=== PATIENT | female | born 1995 | race Caucasian/White ===

== ENCOUNTER 2020-11-06 11:24 | Outpatient (REF) | payer OTHER, SELFPAY | END 2020-11-06 11:25 | disposition home or self-care (01) | LOC: HO.LNP 11:24 | PROVIDERS: Visit Provider Internal Medicine | DX: Z20.822 Contact with and (suspected) exposure to COVID-19 (principal); J06.9 Acute upper respiratory infection, unspecified | CPT/HCPCS: U0003; U0005 ==

== ENCOUNTER 2020-11-21 16:12 | Outpatient (REF) | payer OTHER, SELFPAY ==
--- NOTE | ~2020-11-21 | XR_ITS ---
EXAMINATION: XR CERVICAL SPINE CLINICAL INFORMATION: Cervicalgia. COMPARISON: None TECHNIQUE: Cervical spine is imaged in 4 views. FINDINGS: There is mild rightward tilting on frontal view with borderline straightening cervical lordosis. This may be related to muscle spasm. The vertebral bodies are normal in height, and there is no vertebral compression, spondylolisthesis, disc narrowing, or erosive change. No prevertebral soft tissue swelling. The odontoid appears intact. XR/XR cervical spine 2V IMPRESSION: 1. Mild rightward tilting cervical spine with straightening cervical lordosis, possibly related to muscle spasm. 2. No vertebral compression, spondylolisthesis, or disc narrowing.
== END 2020-11-21 16:13 | disposition home or self-care (01) ==
LOC: HO.XRAY 16:12
PROVIDERS: PCP Internal Medicine; Visit Provider Internal Medicine
DX: M54.2 Cervicalgia (principal)
CPT/HCPCS: 72040

== ENCOUNTER 2021-01-30 11:23 | Outpatient (REF) | payer OTHER, SELFPAY ==
[2021-01-30 12:06] LABS: Influenza A PCR NEGATIVE (Negative); Influenza B PCR NEGATIVE (Negative); Resp Syncy Virus RNA Qual PCR POSITIVE (Negative); SARS COV2 PCR INHOUSE NEGATIVE (Negative)
== END 2021-01-30 11:24 | disposition home or self-care (01) ==
LOC: HO.LNP 11:23
PROVIDERS: Visit Provider Nurse Practitioner Family
DX: Z20.822 Contact with and (suspected) exposure to COVID-19 (principal); R09.81 Nasal congestion; H66.91 Otitis media, unspecified, right ear
CPT/HCPCS: 0241U

== ENCOUNTER 2021-03-15 06:24 | Outpatient (REF) | payer OTHER, SELFPAY ==
[2021-03-15 06:35] LABS: MANUAL DIFF FLAG NO
[2021-03-15 07:51] LABS: Basophils Percent Auto 0.4 % (0-2); Eosinophils Absolute Auto 0.2 X10*3/uL (0.0-0.4); Eosinophils Percent Auto 2.9 % (0-4); Hematocrit 45.4 % (37.0-47.0); Hemoglobin 14.8 g/dl (12.0-16.0); Imm Gran Abs Auto 0.02 X10*3/uL (0.00-0.03); Imm Gran Pct Auto 0.3 % (0.0-0.4); Lymphocytes Percent Auto 44.6 % (20-40); Mean Corpuscular HGB Conc 32.6 g/dl (31.0-35.0); Mean Corpuscular Hemoglobin 27.8 pg (27.0-33.0); Mean Corpuscular Volume 85.2 fL (80.0-98.0); Mean Platelet Volume 10.6 fL (9.4-12.3); Monocytes Absolute Auto 0.7 X10*3/uL (0.1-1.2); Neutrophils Absolute Auto 2.8 x10*3/uL (2.0-8.3); Neutrophils Percent Auto 41.8 % (45-73); Platelet Count 316 X10*3/uL (160-400); Red Blood Count 5.33 X10*6/uL (4.20-5.50); White Blood Count 6.8 X10*3/uL (4.8-10.8)
[2021-03-15 08:08] LABS: Alanine Aminotransferase 25 U/L (0-31); Albumin Level 4.5 g/dL (3.5-5.0); Alkaline Phosphatase 66 U/L (39-117); Anion Gap 13 (12-20); Aspartate Amino Transferase 20 U/L (5-31); Bilirubin Total 0.9 mg/dL (0.0-1.0); Blood Urea Nitrogen 10 mg/dL (9-16); Carbon Dioxide 28 mmol/L (22-29); Chloride 106 mmol/L (96-108); Cholesterol 181 mg/dL; Estimated Glomerular Filt Rate > 60; Glucose Fasting 97 mg/dL (60-99); HDL Cholesterol 32 mg/dL; LDL Cholesterol Calculated 133 mg/dl; Potassium 4.5 mmol/L (3.3-5.1); Sodium 142 mmol/L (135-145); Total Protein 7.9 g/dL (6.5-8.0); Triglycerides 81 mg/dL
[2021-03-20 17:27] LABS: Vitamin D 25-OH, D2 <4 ng/mL; Vitamin D 25-OH, D3 31 ng/mL; Vitamin D 25-OH, Total 31 ng/mL (30-100)
== END 2021-03-15 06:25 | disposition home or self-care (01) ==
LOC: HO.LAB 06:24
PROVIDERS: PCP Internal Medicine; Visit Provider Internal Medicine
DX: E66.3 Overweight (principal); E55.9 Vitamin D deficiency, unspecified; E78.5 Hyperlipidemia, unspecified; D64.9 Anemia, unspecified
CPT/HCPCS: 36415; 80053; 80061; 82306; 85025

== ENCOUNTER → 2021-06-27 09:02 | Outpatient (REF) | payer OTHER, SELFPAY ==
--- NOTE | 2021-06-27 09:12 | ECG_ITS ---
Test Reason : chest pain Blood Pressure : / mmHG Vent. Rate : 067 BPM Atrial Rate : 067 BPM P-R Int : 116 ms QRS Dur : 088 ms QT Int : 368 ms P-R-T Axes : 030 036 035 degrees QTc Int : 388 ms Normal sinus rhythm with sinus arrhythmia Normal ECG No previous ECGs available Referred By: Marya Whitley Electronically Signed By:SANDRA REYES MD
== END ==
LOC: HO.CARD 09:02
PROVIDERS: PCP Internal Medicine; Visit Provider Nurse Practitioner Family
DX: R07.9 Chest pain, unspecified (principal)
CPT/HCPCS: 93005

== ENCOUNTER 2021-07-04 17:31 | Outpatient (REF) | payer OTHER, SELFPAY | END 2021-07-04 17:32 | disposition home or self-care (01) | LOC: HO.LNP 17:31 | PROVIDERS: Visit Provider Physician Assistant | DX: R30.0 Dysuria (principal) | CPT/HCPCS: 87086; 87480; 87510; 87660 ==

== ENCOUNTER 2021-07-12 12:00 | Outpatient (RCR) | payer OTHER, SELFPAY ==
--- NOTE | 2021-06-21 15:22 | MHC.PT.EP ---
[facility] [place] Office [place] Office [place] Office [address] Enrique Diaz [address] [phone] F: [phone] F: [phone] F: [phone] F: [phone] Physical Therapy Plan of Care Date of Evaluation: Date of Surgery: NA Diagnosis: CHRONIC NECK AND BACK PAIN (KP) Assessment: GERTRUDIS IS A PLEASANT 26 YO FEMALE WHO PRESENTS WITH CHRONIC NECK PAIN, INCREASING OVER THE LAST FEW MONTHS. UPON EXAM IMPAIRMENTS INCLUDE DECREASED CERVICAL ROM, DECREASED THORACIC MOBILITY, DECREASED STRENGTH OF SHOULDER ROTATORS AND UPPER BACK, INCREASED SOFT TISSUE TENSION AND PAIN. FUNCTIONAL LIMITATIONS INCLUDE DECREASED ABILITY TO PERFORM HOMEMAKING AND CHILDCARE TASKS, DECREASED ABILITY TO PERFORM LIFTING, REACHING, PUSHING AND PULLING, DECREASED PARTICIPATION IN COMMUNITY AND RECREATIONAL TASKS, DISRUPTED SLEEP. Pt IS A GOOD CANDIDATE FOR SKILLED PT DUE TO AGE, POTENTIAL REMEDIATION OF IMPAIRMENTS, TYPICAL DISEASE/CONDITION PROGRESSION AND PROGNOSIS, COMORBIDITIES, AND MOTIVATION. Pt WOULD BENEFIT FROM TAILORED PROGRAM OF THERAPEUTIC ACTIVITIES, FUNCTIONAL TRAINING, GAIT TRAINING, POSTURAL EDUCATION, NEUROMUSCULAR RE-EDUCATION, AND MODALITIES NEEDED. Frequency and Duration: The patient will be seen 2 X WEEK FOR 6 WEEKS Short Term Goals: INITIATE HEP AND PROMOTE SELF MANAGEMENT OF SYMPTOMS WIN 2 WEEKS Organizational Research Consultant Goals: IN 6 WEEKS FULL, PAINFREE CERVICAL ROM FULL UPPER EXTREMITY STRENGTH TO PLACE 5# OBJECT ON SHOULDER HEIGHT SHELF TO WEB PRESS OPERATOR HELPER OFFSET CHILD WITH PAIN NO GREATER THAN 2/10 Treatment Plan: Modalities to reduce pain, spasms and effusion. Manual therapy to restore motion and function. Therapeutic exercise to improve strength and flexibility. Neuromuscular re-education for posture and balance. Therapeutic activities to return to functional activities of daily living. Electronically signed by: RUPA SHIPLEY PT, DPT Please sign and return to therapist. Thank you for your referral.
[2021-07-06 13:51] LABS: BV Int Neg Control Negative (Negative)
[2021-07-06 13:52] LABS: BV Int Pos Control Positive (Positive)
--- NOTE | 2021-07-29 09:54 | MHC.PT.DC ---
[facility] [place] [facility] [place] Office [place] Office [address] Enrique Diaz [address] [phone] F: [phone] F: [phone] F: [phone] F: [phone] Physical Therapy Discharge Report Diagnosis: CHRONIC NECK AND BACK PAIN Date of Surgery: NA Date of Evaluation: 06/21/21 Date of Discharge: 07/12/21 Treatments to Date: 3 Cancellations to Date: 5 No Shows to Date: 0 Discharge Status: Patient Elected to Stop Discharge Summary: AT LAST ATTENDED VISIT GERTRUDIS STATED THAT SHE WAS NON-COMPLAINT WITH HOME PROGRAM. THE TREATING THERAPIST RE-EDUCATED Pt IN IMPORTANCE OF HEP. GERTRUDIS THEN CALLED AND CANCELLED HER REMAINING APPOINTMENTS STATING SHE WAS NOT INTERESTED IN PHYSICAL THERAPY AT THIS TIME. Electronically signed by: RUPA SHIPLEY PT, DPT Please sign and return to therapist. Thank you for your referral.
== END 2021-09-19 11:14 | disposition home or self-care (01) ==
LOC: HO.PT 12:00
PROVIDERS: Physician Assistant; PCP Internal Medicine; Visit Provider Internal Medicine
DX: M54.2 Cervicalgia (principal)
CPT/HCPCS: 87480; 87510; 87660; 97110; 97161

== ENCOUNTER 2021-07-24 16:18 | Outpatient (REF) | payer OTHER, SELFPAY ==
[2021-07-24 16:37] LABS: MANUAL DIFF FLAG NO
[2021-07-24 16:46] LABS: Basophils Percent Auto 0.3 % (0-2); Eosinophils Absolute Auto 0.3 X10*3/uL (0.0-0.4); Eosinophils Percent Auto 3.6 % (0-4); Hematocrit 41.8 % (37.0-47.0); Imm Gran Abs Auto 0.02 X10*3/uL (0.00-0.03); Imm Gran Pct Auto 0.3 % (0.0-0.4); Lymphocytes Absolute Auto 2.5 X10*3/uL (1.2-4.9); Lymphocytes Percent Auto 32.9 % (20-40); Mean Corpuscular HGB Conc 33.5 g/dl (31.0-35.0); Mean Corpuscular Hemoglobin 27.8 pg (27.0-33.0); Mean Corpuscular Volume 82.9 fL (80.0-98.0); Mean Platelet Volume 10.8 fL (9.4-12.3); Monocytes Absolute Auto 0.5 X10*3/uL (0.1-1.2); Monocytes Percent Auto 6.6 % (2-11); Neutrophils Absolute Auto 4.2 x10*3/uL (2.0-8.3); Neutrophils Percent Auto 56.3 % (45-73); Platelet Count 277 X10*3/uL (160-400); Red Blood Count 5.04 X10*6/uL (4.20-5.50); Red Cell Distribution Width 12.9 % (11.0-16.0); White Blood Count 7.5 X10*3/uL (4.8-10.8)
[2021-07-24 17:01] LABS: Appearance Urine CLEAR; Color Urine YELLOW; Glucose Urine UA NEG (NEG); Leukocyte Esterase Urine NEG (NEG); Nitrite Urine NEG (NEG); Urine Blood NEG (NEG); Urine Ketones NEG (NEG); Urine Protein NEG (NEG-TRACE)
[2021-07-24 17:41] LABS: Alanine Aminotransferase 26 U/L (0-31); Albumin Level 4.6 g/dL (3.5-5.0); Alkaline Phosphatase 61 U/L (39-117); Anion Gap 13 (12-20); Aspartate Amino Transferase 18 U/L (5-31); Bilirubin Total 1.7 mg/dL (0.0-1.0); Blood Urea Nitrogen 13 mg/dL (9-16); Calcium 9.8 mg/dL (8.4-10.2); Carbon Dioxide 26 mmol/L (22-29); Chloride 106 mmol/L (96-108); Estimated Glomerular Filt Rate > 60; Glucose Random 100 mg/dL (60-115); Lipase 36 U/L (8-78); Sodium 141 mmol/L (135-145); Total Protein 7.6 g/dL (6.5-8.0)
[2021-07-25 12:30] LABS: BV Int Neg Control Negative (Negative); BV Int Pos Control Positive (Positive)
[2021-07-26 01:11] LABS: Rubella IgG Antibody 3.99 Index
== END 2021-07-24 16:19 | disposition home or self-care (01) ==
LOC: HO.LAB 16:18
PROVIDERS: Physician Assistant; PCP Internal Medicine; Visit Provider Nurse Practitioner Family
DX: Z01.84 Encounter for antibody response examination (principal); N76.1 Subacute and chronic vaginitis; K52.9 Noninfective gastroenteritis and colitis, unspecified; I10 Essential (primary) hypertension
CPT/HCPCS: 36415; 80053; 81003; 83690; 85025; 86735; 86762; 86765; 86787; 87480; 87510; 87660

== ENCOUNTER → 2021-08-09 09:57 | Outpatient (REF) | payer OTHER, SELFPAY ==
--- NOTE | 2021-08-09 10:00 | CA_ITS ---
Acquisition Time: 2021-08-09 11:00:29 Total Exercise Time: 00:06:58 Test Indications: CP Medications: SEE CHART Protocol: KORINA Max HR: 166 BPM 85% of Pred: 194 BPM Max BP: 154/068 mmHG Max Work Load: 8.4 METS Exercise stress test with exercise 6 min 58 sec of Korina protocol, with report of 8/10 left upper CP, mild sob, without arrythmia, with normotensive response to exercise, without EKG changes meeting criteria for ischemia. In recovery her chest discomfort gradually improved. Test reviewed with Dr Barker Message sent to Dr Paige with report and recommendation for a stress echocardiogram for further evaluation if warranted. Referred By: Yazmin Gallo Overread By: SCOTT VARGAS
[2021-08-09 11:05] LABS: Alanine Aminotransferase 39 U/L (0-31); Albumin Level 4.7 g/dL (3.5-5.0); Alkaline Phosphatase 60 U/L (39-117); Aspartate Amino Transferase 23 U/L (5-31); Bilirubin Direct 0.5 mg/dL (0.0-0.5); Bilirubin Total 1.6 mg/dL (0.0-1.0); Total Protein 7.6 g/dL (6.5-8.0)
== END ==
LOC: HO.CARD 09:57
PROVIDERS: Nurse Practitioner Family; PCP Internal Medicine; Visit Provider Internal Medicine
DX: R07.9 Chest pain, unspecified (principal); R17 Unspecified jaundice
CPT/HCPCS: 36415; 80076; 93017

== ENCOUNTER 2021-10-22 08:59 | Outpatient (REF) | payer OTHER, SELFPAY ==
--- NOTE | ~2021-10-22 | US_ITS ---
EXAMINATION: US ABDOMEN LIMITED CLINICAL INFORMATION: Elevated LFTs. COMPARISON: None TECHNIQUE: Real-time imaging of the right upper quadrant abdominal viscera. FINDINGS: PANCREAS: There is a 6.9 x 6.3 x 4.1 cm hypoechoic lesion posterior to the tail the pancreas. This may be related to lobulated contour of the spleen. Follow-up CT is recommended. The pancreas is otherwise normal. LIVER: Normal. The liver is normal in size. The liver contour is normal. Parenchymal echogenicity is normal. No focal hepatic lesion. There is no intrahepatic biliary duct dilatation seen. GALLBLADDER: Normal. The gallbladder is physiologically distended without evidence of stones, sludge, polyps, wall thickening or pericholecystic fluid. COMMON BILE DUCT: Normal in caliber measuring 0.4 cm in diameter. RIGHT KIDNEY: Normal. No hydronephrosis. No renal calculi or focal parenchymal lesions. The kidney measures 10.7 cm in maximum dimension. FREE FLUID: None. US/US abdomen limited IMPRESSION: 6.7 x 6.3 x 4.1 cm hypoechoic solid lesion posterior to the tail the pancreas. Follow-up CT of the abdomen recommended for further characterization.
== END 2021-10-22 09:00 | disposition home or self-care (01) ==
LOC: HO.HMGCX 08:59
PROVIDERS: PCP Internal Medicine; Visit Provider Nurse Practitioner Family
DX: R79.89 Other specified abnormal findings of blood chemistry (principal)
CPT/HCPCS: 76705

== ENCOUNTER 2021-10-24 10:26 | Outpatient (REF) | payer OTHER, SELFPAY | END 2021-10-24 10:27 | disposition home or self-care (01) | LOC: HO.LAB 10:26 | PROVIDERS: PCP Internal Medicine; Visit Provider Nurse Practitioner | DX: R79.89 Other specified abnormal findings of blood chemistry (principal); K52.9 Noninfective gastroenteritis and colitis, unspecified; K86.9 Disease of pancreas, unspecified | CPT/HCPCS: 99202; 99212 ==

== ENCOUNTER 2021-11-01 06:11 | Outpatient (REF) | payer OTHER, SELFPAY ==
[2021-11-01 07:38] LABS: C Reactive Protein 0.49 mg/dL (< or = 0.50); Gamma Glutamyl Transpeptidase 37 U/L (7-33)
[2021-11-01 07:43] LABS: HBS Num1 1.97 mIU/mL (0-7.99); HBc Num1 0.08 S/CO (0.00-0.79); HBsAGNum1 0.22 S/CO (0.00-0.99); HIV AB/AG Nonreactive (Nonreactive); HIV Num 1 0.07 S/CO (0.00-0.99); Hepatitis A Antibody IgM 0.19 Index (0-0.79); Hepatitis B Core Antibody Nonreactive (Nonreactive); Hepatitis B Surface Antigen Negative (Negative); ~Hepatitis A Antibody IgM Nonreactive (Nonreactive); ~Hepatitis B Surface Antibody NONREACTIVE (Nonreactive); ~Hepatitis C Antibody Nonreactive (Nonreactive)
[2021-11-01 07:46] LABS: Ferritin 155 ng/mL (10-122)
[2021-11-04 14:07] LABS: Alpha Fetoprotein 2.4 ng/mL
[2021-11-05 15:21] LABS: Anti Nuclear Antibody Screen NEGATIVE (NEGATIVE)
[2021-11-06 10:41] LABS: Mitochondrial Antibodies NEGATIVE (NEGATIVE)
[2021-11-06 14:11] LABS: Smooth Muscle Antibody <20 U (<20)
[2021-11-11 01:22] LABS: FIB-ALT 18 U/L (6-29); FIB-Alpha-2-Macroglobulin 252 mg/dL (106-279); FIB-Apolipoprotein A1 125 mg/dL (101-198); FIB-GGT 28 U/L (3-40); FIB-Haptoglobin 139 mg/dL (43-212); FIB-Total Bilirubin 1.1 mg/dL (0.2-1.2); Liver Fibrosis Score 0.27; Liver Fibrosis Stage F1; Nec Inflam Act Grade A0; Nec Inflam Act Score 0.06
== END 2021-11-01 06:12 | disposition home or self-care (01) ==
LOC: HO.LAB 06:11
PROVIDERS: PCP Internal Medicine; Visit Provider Nurse Practitioner
DX: Z11.4 Encounter for screening for human immunodeficiency virus [HIV] (principal); R79.89 Other specified abnormal findings of blood chemistry; K52.9 Noninfective gastroenteritis and colitis, unspecified
CPT/HCPCS: 36415; 81596; 82105; 82728; 82977; 86015; 86038; 86039; 86140; 86255; 86256; 86704; 86706; 86709; 86803; 87340; 87389

== ENCOUNTER 2021-11-08 07:24 | Outpatient (REF) | payer OTHER, SELFPAY ==
--- NOTE | ~2021-11-08 | CT_ITS ---
EXAMINATION: CT ABDOMEN AND PELVIS WITH CONTRAST CLINICAL INFORMATION: Noninfective gastroenteritis and colitis COMPARISON: Previous abdominal ultrasound October 2021 TECHNIQUE: Multidetector volumetric images were obtained from the superior aspect of the liver through the pubic symphysis following administration 85 mL of Omnipaque 350 intravenous contrast. Sagittal and coronal reformatted images were obtained on the technologist's workstation. Oral contrast: Yes This CT examination was performed using dose optimization techniques as appropriate, variously including the following: *Automated exposure control *Adjustment of mA and/or kV according to patient size (this includes techniques or standardized protocols for targeted exams where dose is matched to indication/reason for exam; i.e. extremities or head) *Use of iterative reconstruction technique DLP: 336 mGy-cm FINDINGS: LUNG BASES: The visualized lung bases are unremarkable. LIVER, GALLBLADDER, AND BILIARY TREE: The liver is normal in size, shape, and attenuation. No focal hepatic lesion or biliary ductal dilatation is present. The gallbladder is unremarkable with no evidence of radiopaque gallstones, gallbladder wall thickening, or obvious pericholecystic inflammatory changes. PANCREAS: Unremarkable. No mass. SPLEEN: Unremarkable. The spleen has an abnormal contour and projects posterior to the tail the pancreas. This likely corresponds to abnormality seen by ultrasound. No pancreatic or splenic mass. ADRENAL GLANDS: Unremarkable. KIDNEYS AND URETERS: The kidneys are normal in size, shape, and attenuation. No hydronephrosis, hydroureter, or calculi seen. No perinephric stranding. BLADDER: Unremarkable. GASTROINTESTINAL TRACT: There is stool throughout the colon suggestive of constipation. The small and large bowel are otherwise unremarkable. The appendix is unremarkable. ABDOMINAL WALL: No significant hernia is appreciated. LYMPH NODES: Normal. VASCULAR: Unremarkable. PELVIC VISCERA: Unremarkable. OSSEOUS STRUCTURES: Unremarkable. CT/CT abdomen pelvis w IV con IMPRESSION: Constipation. Slightly abnormal contour of the spleen which projects posterior to the tail the pancreas accounting for ultrasound finding. No left upper quadrant mass. Fleischner guidelines were followed.
[2021-11-08] MEDS: iohexoL 350 MG/ML 100 ML INFUS..BTL IV (10:20)
[2021-11-08] MEDS: Barium Sulfate Oral (Vanilla) 450 ML ORAL.SUSP 900 ML PO (10:21)
== END 2021-11-08 07:25 | disposition home or self-care (01) ==
LOC: HO.CT 07:24
PROVIDERS: PCP Internal Medicine; Visit Provider Nurse Practitioner
DX: K52.9 Noninfective gastroenteritis and colitis, unspecified (principal); K86.9 Disease of pancreas, unspecified
CPT/HCPCS: 74177; Q9967

== ENCOUNTER 2021-12-06 06:17 | Outpatient (REF) | payer OTHER, SELFPAY ==
[2021-12-06 07:17] LABS: Alanine Aminotransferase 18 U/L (0-31); Albumin Level 4.6 g/dL (3.5-5.0); Alkaline Phosphatase 69 U/L (39-117); Anion Gap 14 (12-20); Aspartate Amino Transferase 16 U/L (5-31); Bilirubin Total 0.9 mg/dL (0.0-1.0); Blood Urea Nitrogen 10 mg/dL (9-16); Calcium 9.8 mg/dL (8.4-10.2); Carbon Dioxide 28 mmol/L (22-29); Chloride 105 mmol/L (96-108); Cholesterol 192 mg/dL; Estimated Glomerular Filt Rate > 60; Glucose Fasting 102 mg/dL (60-99); HDL Cholesterol 39 mg/dL; LDL Cholesterol Calculated 138 mg/dl; Potassium 4.2 mmol/L (3.3-5.1); Sodium 143 mmol/L (135-145); Total Protein 7.6 g/dL (6.5-8.0); Triglycerides 75 mg/dL
== END 2021-12-06 06:18 | disposition home or self-care (01) ==
LOC: HO.LAB 06:17
PROVIDERS: PCP Internal Medicine; Visit Provider Internal Medicine
DX: Z00.00 Encounter for general adult medical examination without abnormal findings (principal); Z13.220 Encounter for screening for lipoid disorders
CPT/HCPCS: 36415; 80053; 80061

== ENCOUNTER → 2022-01-03 12:40 | Outpatient (BNVA) | payer OTHER, SELFPAY | PROVIDERS: PCP Internal Medicine; Visit Provider Nurse Practitioner | DX: R10.9 Unspecified abdominal pain (principal); R79.89 Other specified abnormal findings of blood chemistry; Z87.19 Personal history of other diseases of the digestive system | CPT/HCPCS: 99212 ==

== ENCOUNTER → 2022-01-28 15:46 | Outpatient (BNVA) | payer OTHER, SELFPAY | PROVIDERS: PCP Internal Medicine; Visit Provider Nurse Practitioner | DX: R10.9 Unspecified abdominal pain (principal); R79.89 Other specified abnormal findings of blood chemistry; Z87.19 Personal history of other diseases of the digestive system | CPT/HCPCS: 99212 ==

== ENCOUNTER 2022-02-06 12:07 | Outpatient (REF) | payer OTHER, SELFPAY ==
--- NOTE | 2022-02-06 10:00 | EMG_ITS ---
Right tibial and peroneal motor studies were obtained. Right sural, superficial peroneal, median, and lateral plantar sensory studies were obtained. Tibial H-reflex was obtained and paraspinal muscles were tested with a needle. IMPRESSION: This study did not reveal any significant abnormality to suggest peripheral neuropathy or radiculopathy. MD COLIN Bennett/HERMAN / [id number]
== END 2022-02-06 12:08 | disposition home or self-care (01) ==
LOC: HO.NEURO 12:07
PROVIDERS: PCP Internal Medicine; Visit Provider Internal Medicine
DX: R20.2 Paresthesia of skin (principal)
CPT/HCPCS: 95886; 95910

== ENCOUNTER 2022-03-06 09:30 | Outpatient (REF) | payer OTHER, SELFPAY ==
[2022-03-06 10:37] LABS: COVID-19 Test Negative (Negative); IDNOW Serial# 16C4AD1C
== END 2022-03-06 09:31 | disposition home or self-care (01) ==
LOC: HO.LAB 09:30
PROVIDERS: Visit Provider Internal Medicine
DX: Z20.822 Contact with and (suspected) exposure to COVID-19 (principal)
CPT/HCPCS: 87635; C9803

== ENCOUNTER 2022-05-09 06:16 | Outpatient (REF) | payer OTHER, SELFPAY ==
[2022-05-09 08:15] LABS: Glucose 1 Hour 154 mg/dL
[2022-05-09 08:28] LABS: Glucose Fasting 87 mg/dL (60-99)
[2022-05-09 10:55] LABS: Glucose 2 Hour 117 mg/dL
[2022-05-09 11:12] LABS: Glucose 3 Hour 96 mg/dL
== END 2022-05-09 06:17 | disposition home or self-care (01) ==
LOC: HO.LAB 06:16
PROVIDERS: PCP Internal Medicine; Visit Provider Internal Medicine
DX: R73.02 Impaired glucose tolerance (oral) (principal)
CPT/HCPCS: 36415; 82951

== ENCOUNTER 2022-05-29 07:16 | Day surgery (SDC) | payer OTHER, SELFPAY ==
[2022-05-27 11:13] VITALS: BMI 29.0
--- NOTE | 2022-05-27 12:17 | P.CONAN_ITS ---
Documented by User: Christin Darling NP 05/27/22 12:19 HPI - Anesthesia Eval Consult details Narrative: 27yo F for Upper Endoscopy and Colonoscopy [facility] Active Problems Active Problems: All Active Problems (Updated 01/28/22 @ 16:11 by CHUCHO Sin) Abdominal cramping (Acute) Paresthesia of lower extremity (Acute) Physical exam (Acute) Left lower quadrant abdominal pain (Acute) Decreased hearing of left ear (Acute) Otitis externa of right ear (Acute) Trauma of ear canal (Acute) Impacted cerumen, left ear (Acute) Left ear pain (Acute) Impacted cerumen of both ears (Acute) Constipation (Acute) History of colitis (Acute) External hemorrhoid, bleeding (Acute) Elevated LFTs (Acute) Rectal pain (Acute) Blood in stool (Acute) Elevated bilirubin (Acute) Bacterial vaginal infection (Acute) Anaphylactic reaction (Acute) Dysuria (Acute) Vaginitis (Acute) Colitis (Acute) Intermittent chest pain (Acute) Dysuria (Acute) Immunization due (Acute) Nasal congestion (Acute) Right otitis media (Acute) Neck pain (Acute) Seborrheic dermatitis of scalp (Acute) Overweight (BMI 25.0-29.9) (Acute) HSV infection (Acute) Upper respiratory tract infection (Acute) Past Medical History Medical History History of colitis HSV infection Immunization due Neck pain Overweight (BMI 25.0-29.9) Pancreatic lesion Seborrheic dermatitis of scalp Family History Family History Mother Hypertension Diabetes Father Hypertension Maternal Uncle Prostate cancer Surgical History Surgical History History of History of wisdom tooth extraction Social History Social History Housing: House Alcohol intake: former Patient Tobacco Use Status: Former Tobacco user Tobacco use type: Cigarette e-Cigarette/Vaping Use: Never Used Second Hand Smoke Exposure: No Advance Directives: No Advance Directives Information Provided: Yes service: No Current occupational status: employed Current occupational exposures/hazards: No Cognitive needs: No Hearing needs: No Vision needs: No Meds Allergies Allergy/AdvReac Type Severity Reaction Status Date / Time sulfamethoxazole Allergy Severe Anaphylaxis Verified 01/28/22 16:04 [From Sulfamethoxazole-Trimethoprim] trimethoprim Allergy Severe Anaphylaxis Verified 01/28/22 16:04 [From Sulfamethoxazole-Trimethoprim] black pepper Allergy Intermediate throat Verified 01/28/22 16:04 swelling kiwi Allergy Intermediate throat Verified 01/28/22 16:04 swelling pineapple Allergy Intermediate throat Verified 01/28/22 16:04 swelling prednisone AdvReac Severe Anaphylaxis Verified 01/28/22 16:04 wood Allergy Intermediate hives Uncoded 01/28/22 16:04 Home Medications Medication Instructions Recorded Confirmed Last Taken Type epinephrine 0.3 mg/0.3 mL 0.3 mg IM ONCE 10/24/21 11/26/21 Unknown History injection, auto-injector cyclobenzaprine 10 mg tablet 10 mg PO BEDTIME 01/03/22 Unknown History Nexplanon 05/29/22 05/29/22 Unknown History Exam Exam Date and Time: May 27, 2022 1217 Height,Weight and Vital Signs: Height 5 ft 1 in Weight 69.853 kg Pertinent Lab Results Pertinent Lab Results: Laboratory Tests 07/24/21 12/06/21 16:36 06:34 WBC 7.5 Hgb 14.0 Hct 41.8 Plt Count 277 Sodium 143 Potassium 4.2 Chloride 105 Carbon Dioxide 28 BUN 10 Creatinine 0.76 Narrative Narrative: CT abdomen pelvis w IV con 10/2021 IMPRESSION: Constipation.? Slightly abnormal contour of the spleen which projects posterior to the tail the pancreas accounting for ultrasound finding. No left upper quadrant mass. Assessment and Plan Assessment Anesthesia Assessment: Chart Reviewed Documented by User: Sharyn Dash MD 05/29/22 08:38 [facility] Past Medical History Medical History History of colitis HSV infection Immunization due Neck pain Overweight (BMI 25.0-29.9) Pancreatic lesion Seborrheic dermatitis of scalp Family History Family History Mother Hypertension Diabetes Father Hypertension Maternal Uncle Prostate cancer Family history of problems with anesthesia: No Surgical History Surgical History History of History of wisdom tooth extraction History of Problems with Anesthesia: No Social History Social History Housing: House Alcohol intake: former Patient Tobacco Use Status: Former Tobacco user Tobacco use type: Cigarette e-Cigarette/Vaping Use: Never Used Second Hand Smoke Exposure: No Advance Directives: No Advance Directives Information Provided: Yes service: No Current occupational status: employed Current occupational exposures/hazards: No Cognitive needs: No Hearing needs: No Vision needs: No Meds Allergies Allergy/AdvReac Type Severity Reaction Status Date / Time sulfamethoxazole Allergy Severe Anaphylaxis Verified 01/28/22 16:04 [From Sulfamethoxazole-Trimethoprim] trimethoprim Allergy Severe Anaphylaxis Verified 01/28/22 16:04 [From Sulfamethoxazole-Trimethoprim] black pepper Allergy Intermediate throat Verified 01/28/22 16:04 swelling kiwi Allergy Intermediate throat Verified 01/28/22 16:04 swelling pineapple Allergy Intermediate throat Verified 01/28/22 16:04 swelling prednisone AdvReac Severe Anaphylaxis Verified 01/28/22 16:04 wood Allergy Intermediate hives Uncoded 01/28/22 16:04 Home Medications Medication Instructions Recorded Confirmed Last Taken Type epinephrine 0.3 mg/0.3 mL 0.3 mg IM ONCE 10/24/21 11/26/21 Unknown History injection, auto-injector cyclobenzaprine 10 mg tablet 10 mg PO BEDTIME 01/03/22 Unknown History Nexplanon 05/29/22 05/29/22 Unknown History Exam Airway Mallampati Class: II TM Dist: >3cm Neck ROM: Full Heart: rrr Lungs: cta Assessment and Plan Assessment Anesthesia Assessment: Anesthesia Plan Discussed Final Anesthetic Review Family History of Problems with Anesthesia: No History of Problems with Anesthesia: No NPO: Yes ASA Class: II Final Preanesthetic Review: No Changes in Pt Med Stat, Meds/Allgs Chart Reviewed and Consent Obtained/Reviewed Patient Risk: Intermediate Procedure Risk: Intermediate Anesthetic Plan Anesthetic Plan: MAC: Disposition: Standard PACU
[2022-05-29 07:32] VITALS: BMI 29.5
[2022-05-29 07:48] VITALS: BP 112/69; PULSE 66; RESP 16; TEMP 36.3; O2SAT 99
[2022-05-29 07:56] LABS: UPreg QC Valid YES; Urine Pregnancy NEGATIVE (NEGATIVE)
--- NOTE | 2022-05-29 08:26 | P.HPSUR_ITS ---
Pre-Procedural Eval Section A Date of Service: 05/29/22 Section B Chief Complaint: Unspecified abdominal pain / nausea Details of Present Illness: altered bowel habits Relevant Family History (Specify if Yes): No Relevant Social History: None Present Medications: see Short Stay Collaborative assessment Medical History: Significant History (History of colitis HSV infection Immuni zation due Neck pain Overweight (BMI 25.0-29.9) Pancreatic lesion Seborrheic dermatitis of scalp) History of Previous Operations: Relevant previous surgery/procedure and date(s) (c section) Allergies: Allergies Allergy/AdvReac Type Severity Reaction Status Date / Time sulfamethoxazole Allergy Severe Anaphylaxis Verified 01/28/22 16:04 [From Sulfamethoxazole-Trimethoprim] trimethoprim Allergy Severe Anaphylaxis Verified 01/28/22 16:04 [From Sulfamethoxazole-Trimethoprim] black pepper Allergy Intermediate throat Verified 01/28/22 16:04 swelling kiwi Allergy Intermediate throat Verified 01/28/22 16:04 swelling pineapple Allergy Intermediate throat Verified 01/28/22 16:04 swelling prednisone AdvReac Severe Anaphylaxis Verified 01/28/22 16:04 wood Allergy Intermediate hives Uncoded 01/28/22 16:04 Review of Systems Sugical H&P ROS: Negative: Constitution, Cardiovascular, Respiratory, Neurological, Psychiatric, Hem-Onc, Allergic/Immunologic, Gastrointestinal, Genitourinary, Musculoskeletal, Integumentary, Endocrine and Eyes/Ears/Nose/Throat Exam Surgical H&P Exam: Normal: HEENT, Normal: Heart, Normal: Lungs, Normal: Extremities, Normal: Abdomen, Normal: Skin and Normal: Neurological Plan Diagnosis/Plan: Unchanged I have reviewed the history and physical and performed a pertinent physical examination on my patient. No changes have occurred unless specified. Time Spent With Patient Time: Total time managing care of this patient today ____ minutes.
--- NOTE | 2022-05-29 08:44 | P.OP_ITS ---
Operative Note Operative Note Date of Service: 05/29/22 Narrative: Operative Information Procedure Description: EGD, Colonoscopy Indication: nausea, abdominal pain and altered bowel habit Anesthesia: MAC FLEXIBLE TRANSORAL UPPER GASTROINTESTINAL ENDOSCOPY AND COLONOSCOPY PROCEDURE NOTE UPPER ENDOSCOPY Consent: Indications for the procedure and potential complications of bleeding, perforation, reaction to medications and missed diagnosis were discussed with the patient and informed consent was obtained. Instrument: Olympus GIF H 190 J mid size upper endoscope Monitoring: Vital signs and clinical assessment, continuous EKG monitoring, Pulse oximetry, Carbon Dioxide monitoring and blood pressure monitoring were done throughout the procedure. Procedure: The patient was placed in the left lateral decubitis position and pre-procedure medications were administered and a bite block was placed. The endoscope was inserted into the mouth and advanced under direct vision to the third part of duodenum. A careful inspection was made as the upper endoscope was withdrawn including a retroflexed examination of the proximal stomach; Findings and interventions are described below. Findings: Larynx:normal Esophagus: GE junction at 35 cm, diaphragm hiatus at 35 cm, patchy areas of salmon pink mucosa, bx taken to r/o barretts, also bx taken from distal esophagus. There was a non obstructive schatzki ring. Stomach: Patchy erythema and granularity. Biopsies were obtained. Grade 3 flap valve on retroflexed examination of the cardia with lax esophagus noted. There appeared to be reduced gastric motility. Duodenum: Normal bulb and descending duodenum, bx taken Intervention: Biopsies as noted above COLONOSCOPY Instrument: Olympus variable stiffness pediatric scope 190L Colonoscopy Monitoring: Vital signs and clinical assessment, continuous EKG monitoring, Pulse oximetry, Carbon Dioxide monitoring and blood pressure monitoring were done throughout the procedure. Colon withdrawal time was 10 minutes. Procedure: The patient was placed in the left lateral decubitis position and pre-procedure medications were administered. After a digital rectal examination of the ano-rectum, the video colonoscope was inserted into the rectum and advanced through the colon to the cecum/TI. The colonoscope was slowly withdrawn in a retrograde panoramic fashion and the colon mucosa was carefully examined including a retroflexed view of the rectum. Findings and interventions are described below. Procedure Difficulty: easy Findings: There appeared to be reduced colonic motility. Terminal Ileum-normal, bx taken random bx taken Cecum:normal Ascending Colon: normal, patchy lymphoid appearing follicles were noted Transverse Colon -normal Descending Colon:normal Sigmoid Colon: 5-6 mm sessile polyp removed with cold forceps Rectum: Retroflexion with small internal hemorrhoids, grade I Anorectum - normal Colon preparation: [place] Bowel Preparation Scale Right colon; 3 Transverse colon: 3 Left colon; 3 (0 = Unprepared colon segment with mucosa not seen due to solid stool that cannot be cleared. 1 = Portion of mucosa of the colon segment seen, but other areas of the colon segment not well seen due to staining, residual stool and/or opaque liquid. 2 = Minor amount of residual staining, small fragments of stool and/or opaque liquid, but mucosa of colon segment seen well. 3 = Entire mucosa of colon segment seen well with no residual staining, small fragments of stool or opaque liquid) Impression and Post Procedure Diagnosis: Endoscopy Findings: gastritis schatzki ring possible barretts lax LES Colonoscopy Findings: internal hemorrhoids polyp Plan: Await Pathology results Repeat Colonoscopy in 5-7 years if adenomatous polyps, or earlier if clinically indicated, toehr salter next colonoscopy aged 45 High fiber diet leaflet avoid straining at stool, epsom salts and sitz bath, anusol supps or cream if H pylori pos then treat if neg can consider GES and sitz marker test for colonic motility Above findings were reviewed with the patient and relevant handouts were provided if indicated.
[2022-05-29 09:20] VITALS: BP 156/63; PULSE 86; RESP 16; TEMP 36.5; O2SAT 99
[2022-05-29 09:35] VITALS: BP 112/60; PULSE 79; RESP 18; TEMP 36.8; O2SAT 98
== END 2022-05-29 10:32 | disposition home or self-care (01) ==
PROVIDERS: Nurse Practitioner; PCP Internal Medicine; Visit Provider Internal Medicine Gastroenterology
PROC: (CPT 45380; principal; 2022-05-29 08:30)
DX: R10.9 Unspecified abdominal pain (principal); R11.0 Nausea; R19.4 Change in bowel habit; K63.5 Polyp of colon; K64.0 First degree hemorrhoids; K29.70 Gastritis, unspecified, without bleeding; K21.00 Gastro-esophageal reflux disease with esophagitis, without bleeding; K22.2 Esophageal obstruction; Z88.2 Allergy status to sulfonamides; Z88.8 Allergy status to other drugs, medicaments and biological substances
CPT/HCPCS: 45380; 43239; 81025; 88305; 88342

== ENCOUNTER → 2022-06-16 14:00 | Outpatient (BNVA) | payer OTHER, SELFPAY | PROVIDERS: PCP Internal Medicine; Visit Provider Internal Medicine Gastroenterology | DX: R10.12 Left upper quadrant pain (principal); K86.89 Other specified diseases of pancreas | CPT/HCPCS: 99212 ==

== ENCOUNTER 2022-07-24 15:33 | Outpatient (REF) | payer OTHER, SELFPAY ==
--- NOTE | ~2022-07-24 | XR_ITS ---
EXAMINATION: XR HAND, RIGHT CLINICAL INFORMATION: Pain COMPARISON: None available. TECHNIQUE: PA, lateral, and oblique views of the right hand. FINDINGS: No acute fracture or dislocation. Joint spaces are maintained. Soft tissues are unremarkable. XR/XR hand RT 2V IMPRESSION: Normal right hand.
== END 2022-07-24 15:34 | disposition home or self-care (01) ==
LOC: HO.XRAY 15:33
PROVIDERS: PCP Internal Medicine; Visit Provider Internal Medicine
DX: M79.641 Pain in right hand (principal)
CPT/HCPCS: 73120

== ENCOUNTER 2022-09-23 14:27 | Outpatient (AMB) | payer OTHER, SELFPAY ==
[2022-09-23 14:43] VITALS: BMI 33.5
--- NOTE | 2022-09-23 14:43 | A.OFFVIS_ITS ---
Intake VS Expanded 09/23/22 14:43 Height 5 ft 1 in Weight 177 lb 7.554 oz BMI 33.5 Intake Visit Reasons: Gastroenteritis Allergies sulfamethoxazole [From Sulfamethoxazole-Trimethoprim] Allergy (Severe, Verified 07/17/22 17:20) Anaphylaxis trimethoprim [From Sulfamethoxazole-Trimethoprim] Allergy (Severe, Verified 07/17/22 17:20) Anaphylaxis black pepper Allergy (Intermediate, Verified 07/17/22 17:20) throat swelling kiwi Allergy (Intermediate, Verified 07/17/22 17:20) throat swelling pineapple Allergy (Intermediate, Verified 07/17/22 17:20) throat swelling prednisone Adverse Reaction (Severe, Verified 07/17/22 17:20) Anaphylaxis wood Allergy (Intermediate, Uncoded 07/17/22 17:20) hives HPI Nutrition Presentation Details Patient presents for medical nutrition therapy for gastroenteritis. Patient was referred by primary care physician: Dr. Paige. Typical meal intake b: 7:30-8: 30 Bread with ham/egg/truong on honey wheat bread on aristides lm and coffee 11 : 30 fast food meal burger fries her may skip 3-4 pm: [place] and beans and chicken or pasta meal For 6-8 p.m. cereal with milk lactose free Food frequency Fruits per day 0-2 Non starchy vegetables reports including 0 to 2 times a month Dairy: Reports choosing lactose free Protein foods reports choosing poultry, beef and eggs the majority of the time Starches greater than 12 servings per day physical activity: sedentary ETOH/SMoking: denies QZQ-Bqwufyp-Nz.Jeor Equation Height 5 ft 1 in Weight 177 lb Resting Metabolic Rate 1476.59 Calculated Activity Level Sedentary Calories Needed to Maintain Weight 1771.91 Diagnosis Nutrition problem #1 food nutri know defi As evidenced by (sign/symptom) #1 food recall Nutrition problem #2 food nutri know defi Most Recent Diabetes Results: No Data to Display [facility] Medical History History of colitis HSV infection Immunization due Neck pain Overweight (BMI 25.0-29.9) Pancreatic lesion Seborrheic dermatitis of scalp Surgical History History of History of esophagogastroduodenoscopy (EGD) History of wisdom tooth extraction Hx of colonoscopy Family History Mother Hypertension Diabetes Father Hypertension Maternal Uncle Prostate cancer Social History Housing: House Alcohol intake: former Patient Tobacco Use Status: Former Tobacco user Tobacco use type: Cigarette e-Cigarette/Vaping Use: Never Used Second Hand Smoke Exposure: No service: No Current occupational status: employed Current occupational exposures/hazards: No Cognitive needs: No Hearing needs: No Vision needs: No Assessment & Plan Assessment & Plan (1) Gastroenteritis, non-infectious: Code(s): K52.9 - Noninfective gastroenteritis and colitis, unspecified Plan: wt: 80 kg Est kcal needs as per MSJ: 1800 (40% carb, 30% protein/fat) Est fluid needs as per 25-30 ml/d: 2010 Est prot per day as per 1 g/kg bw: 80 Recommend fiber intake : 8-10 g per day and gradually increase to 25-28 g per day for women and 35-38 g for men or as tolerated Recommend sodium intake per day : less than 1500 mg less than 2000 mg Educated patient on: ( R = reviewed V = verbalizes understanding N/R = needs review N/A = not applicable * Food sources of carbohydrate, adequate serving sizes and its role in various health conditions: R * Differences between complex carbohydrates a simple carbohydrates, role of fiber in diet: R * Differences between types of fats and role in diet (mono on saturated fat fatty acids, saturated fatty acids, trans fats): R * Food sources of sodium in salt and healthy modifications for heart health in kidney health: NR * Healthy plate method concept: R * Physical activity: Benefits a precaution: R Patient Instructions: Reduced on intake of fat from fried foods (starches protein snacks) See meal ideas following healthy plate method consisting 1700 calories per day Keep hydrated by drinking water, lactose free beverages, dilute juices with water Keep a food record and bring to next follow-up for review Coding Level of Care Code Nutr Indiv Intake (38781) Diagnoses Gastroenteritis, non-infectious K52.9 Time Spent (min) 30
[2022-09-29 13:16] VITALS: BMI 33.4
== END 2022-09-23 15:14 | disposition home or self-care (01) ==
PROVIDERS: PCP Internal Medicine; Visit Provider Dietitian, Registered
DX: K52.9 Noninfective gastroenteritis and colitis, unspecified (principal)

== ENCOUNTER → 2022-09-23 14:27 | Outpatient (BNVA) | payer OTHER, SELFPAY | PROVIDERS: Visit Provider Dietitian, Registered | DX: K52.9 Noninfective gastroenteritis and colitis, unspecified (principal) | CPT/HCPCS: 97802 ==

== ENCOUNTER 2022-12-30 16:45 | Outpatient (AMB) | payer OTHER, SELFPAY ==
--- NOTE | 2022-12-30 16:52 | A.OFFPC_ITS ---
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 Accompanied by: Child Allergies sulfamethoxazole [From Sulfamethoxazole-Trimethoprim] Allergy (Severe, Verified 12/30/22 17:02) Anaphylaxis trimethoprim [From Sulfamethoxazole-Trimethoprim] Allergy (Severe, Verified 12/30/22 17:02) Anaphylaxis black pepper Allergy (Intermediate, Verified 12/30/22 17:02) throat swelling kiwi Allergy (Intermediate, Verified 12/30/22 17:02) throat swelling pineapple Allergy (Intermediate, Verified 12/30/22 17:02) throat swelling prednisone Adverse Reaction (Severe, Verified 12/30/22 17:02) Anaphylaxis wood Allergy (Intermediate, Uncoded 12/30/22 17:02) hives Medication List - Last Reconciled 12/30/22 by Yazmin Gallo MD cyclobenzaprine 10 mg PO BEDTIME PRN 30 days dicyclomine 20 mg PO QID 30 days epinephrine 0.3 mg IM ONCE [Nexplanon ] nitroglycerin 0.4%(w/w) (Rectiv) 1 inch [place] BID prucalopride (Motegrity) 1 mg PO DAILY valacyclovir 1,000 mg PO TID 7 days Tobacco use date assessed: 07/17/22 Dental Screening Dental Screen Date: 12/30/22 Did you have a dental visit in the last 12 months?: Yes Did you have a dental problem in the last 6 months where you did not have access to dental care?: No Was dental information given to patient?: Patient has dentist HPI HPI Comments History of Present Illness Details This is a 27-year-old female that comes for her physical exam. Last Pap smear was at [facility] and he was 2 years ago as per patient was normal. No chest pain or shortness of breath. No fever or cough. [facility] Medical History Pancreatic lesion History of colitis Immunization due Neck pain Seborrheic dermatitis of scalp Overweight (BMI 25.0-29.9) HSV infection Surgical History Hx of colonoscopy History of esophagogastroduodenoscopy (EGD) History of History of wisdom tooth extraction Family History Mother Hypertension Diabetes Father Hypertension Maternal Uncle Prostate cancer Social History Housing: House Alcohol intake: former Patient Tobacco Use Status: Former Tobacco user Tobacco use type: Cigarette e-Cigarette/Vaping Use: Never Used Second Hand Smoke Exposure: No service: No Current occupational status: employed Current occupational exposures/hazards: No Cognitive needs: No Hearing needs: No Vision needs: No Questionnaire Thrive Questionnaire Date Thrive assessed: 07/17/22 MADIHA-7 AMB Questionnaire MADIHA-7 Date MADIHA - 7 assessed: 07/17/22 Source: Developed by Drs. Brian Marin, Loretta Hicks, Hany Harrington and colleagues, with an educational maricarmen from [employer]. Review of Systems Const All systems reviewed & are unremarkable except as noted in HPI and below Eyes Reports no additional complaints, Denies change in vision and Denies other visual disturbances Card Denies chest pain at rest, Denies chest pain with activity, Denies edema, Denies irregular heart rhythm, Denies claudication, Denies dyspnea, Denies dyspnea on exertion, Denies orthopnea, Denies paroxysmal nocturnal dyspnea and Denies slow heart rate Resp Denies cough, Denies dyspnea and Denies dyspnea on exertion GI Denies abdominal pain, Denies change in bowel habits, Denies excessive flatus, Denies nausea and Denies vomiting Denies urinary incontinence, Denies urinary hesitancy and Denies urinary urgency Musc Denies abnormal gait, Denies atrophy, Denies deformity and Denies limited range of motion Skin/Breast Denies bleeding lesions, Denies changing lesions and Denies rash Neuro Denies abnormal gait and Denies lack of coordination Physical exam (Primary Care) Vital Signs: Last Vital Signs BP 112/70 12/30/22 16:54 BMI result Body Mass Index 29.1 Tobacco/Smoking Status: Tobacco use Status Tobacco use date assessed 07/17/22 12/30/22 16:54 Patient Tobacco Use Status Former Tobacco user 12/30/22 16:54 Tobacco use type Cigarette 12/30/22 16:54 e-Cigarette/Vaping Use Never Used 12/30/22 16:54 Thrive Assessment: Date of Thrive Assessment Date Thrive assessed 07/17/22 12/30/22 16:54 Const Orientation/consciousness: patient oriented x3 HENMT Head: Yes normal to inspection, Yes normocephalic and Yes atraumatic Ears: external ears normal Eyes General: appearance normal, both eyes and all related structures Eyelids: Yes eyelids normal Conjunctivae: conjunctivae normal Neck Neck: Yes normal visual inspection and Yes supple Resp Effort & Inspection: normal respiratory effort Auscultation: clear to auscultation bilaterally Cardio Jugular venous distension: no JVD Rate: regular rate Rhythm: regular rhythm Heart sounds: S1 normal heart sound present and S2 normal heart sound present GI Inspection: Yes normal to inspection Palpation (GI): Soft to palpation and nontender Auscultation: normal bowel sounds Skin General skin exam: no rashes or lesions noted Neuro General: patient oriented x3 and no focal motor deficits Extrem General: Yes full ROM Psych Appearance: grossly normal Assessment and Plan Assessment & Plan (1) Physical exam: Code(s): Z00.00 - Encounter for general adult medical examination without abnormal findings Plan: Repeat in a year. Orders: Orders Lipid Panel Today Z00.00 - Encounter for general adult medical examination without abnormal findings Comprehensive [place]. Panel Fast Today Z00.00 - Encounter for general adult medical examination without abnormal findings Coding Level of Care Code Est Pt Prev Care 18-39y(14916) Diagnoses Physical exam Z00.00 Time Spent (min) 31
[2022-12-30 16:54] VITALS: BP 112/70; BMI 29.1
== END 2022-12-30 17:11 | disposition home or self-care (01) ==
PROVIDERS: Visit Provider Internal Medicine
DX: Z00.00 Encounter for general adult medical examination without abnormal findings (principal)
CPT/HCPCS: 99395

== ENCOUNTER 2023-01-07 07:43 | Outpatient (REF) | payer OTHER, SELFPAY ==
--- NOTE | ~2023-01-07 | FL_ITS ---
EXAMINATION: XR FLUOROSCOPY UPPER GI WITH AIR CLINICAL INFORMATION: Postprandial abdominal pain COMPARISON: None. The endoscopy report from May 2022 was reviewed. TECHNIQUE: Fluoroscopic air contrast upper GI examination was performed utilizing standard techniques with thin and thick barium and effervescent granules. Numerous spot images were obtained. FINDINGS: Dual and single contrast images of the esophagus demonstrate normal caliber, contour, and mucosal pattern. No evidence of stricture, mass, or ulcerations identified. Esophageal peristalsis was normal. No evidence of hiatus hernia identified. No significant gastroesophageal reflux was seen during the course of the examination and on reflux views. Dual contrast and single contrast images of the stomach demonstrated a normal contour. The gastric mucosal folds appear thickened, consistent with gastritis. There is a significant delay of passage of contrast from the antrum to the duodenal bulb. The mucosa of the duodenal bulb appears irregular, however exam is limited due to the delay in transit of contrast. The imaged proximal jejunum has a normal fold pattern and caliber. FLUOROSCOPY TIME: 6 minutes 13 seconds Number of Spot Images: 20 Number of Cine: 7 DOSE AREA PRODUCT: 3912 uGy-m2 (microgray-meter squared) FL/FL upper GI w air IMPRESSION: 1. Thickened gastric mucosal folds consistent with gastritis 2. Significant delay of passage of contrast through stomach and into the duodenum. This may represent a functional pathology, or may represent a partial obstruction due to duodenal pathology. 3. Abnormal appearance of the duodenal bulb mucosa, however, exam is limited. Recommend gastroenterology follow-up with consideration of repeat endoscopy. This procedure was performed by Holden Gonzales PA-C, and supervised by Dr. Hair
== END 2023-01-07 07:44 | disposition home or self-care (01) ==
LOC: HO.XRAY 07:43
PROVIDERS: PCP Internal Medicine; Visit Provider Internal Medicine
DX: R10.13 Epigastric pain (principal)
CPT/HCPCS: 74246

== ENCOUNTER → 2023-01-07 07:45 | Outpatient (BNV) | payer OTHER, SELFPAY | PROVIDERS: PCP Internal Medicine; Visit Provider Radiology Diagnostic Radiology | DX: K29.70 Gastritis, unspecified, without bleeding (principal) | CPT/HCPCS: 74246 ==

== ENCOUNTER 2023-05-18 15:03 | Outpatient (AMB) | payer OTHER, SELFPAY ==
--- NOTE | 2023-05-18 15:03 | A.OFFVIS_ITS ---
Intake Intake Visit Reasons: 6 month follow up Intake Note: PT in 6 months telehealth follow up of abdominal pain. CC: States she is no longer taking the Pantoprazole or lactulose d/t pain and diarrhea. Patient c/o rectal pain, abdominal pain, and abdominal bloating. 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 Accompanied by: Self / Same As Patient Allergies sulfamethoxazole [From Sulfamethoxazole-Trimethoprim] Allergy (Severe, Verified 05/18/23 15:09) Anaphylaxis trimethoprim [From Sulfamethoxazole-Trimethoprim] Allergy (Severe, Verified 05/18/23 15:09) Anaphylaxis black pepper Allergy (Intermediate, Verified 05/18/23 15:09) throat swelling kiwi Allergy (Intermediate, Verified 05/18/23 15:09) throat swelling pineapple Allergy (Intermediate, Verified 05/18/23 15:09) throat swelling prednisone Adverse Reaction (Severe, Verified 05/18/23 15:09) Anaphylaxis wood Allergy (Intermediate, Uncoded 12/30/22 17:02) hives HPI 6 month follow up HPI Details 28 yr old f called for f/u RECAP: Originally saw May irvin rodriguez she has been on bentyl EGD/[place]: 05/29/22 Endoscopy Findings: gastritis schatzki ring possible barretts lax LES Colonoscopy Findings: internal hemorrhoids polyp reduced motility PAth- no concerning findings CT 10/2021-- abn contour spleen, constipation INTERIM: rectum pain is better but not fully gone, she feels rectiv helped stool is hard and makes the pain worse she never got the motegrity she feels reflux is getting worse, she used pantoprazole and felt it was not helpful she can have pain in the sides, sometimes better with passing gas and stool --asking for meds which dont make her go as she has to work in the morning A/P: 1/ slow transit constipation, 2/ GERD PLAN: 1/ send lansoprazole 2/ low dose bentyl 10 mg 3/ resent rectiv and will also try trula nce in the evenings and weekends [facility] Medical History Pancreatic lesion History of colitis Immunization due Neck pain Seborrheic dermatitis of scalp Overweight (BMI 25.0-29.9) HSV infection Surgical History Hx of colonoscopy History of esophagogastroduodenoscopy (EGD) History of History of wisdom tooth extraction Family History Mother Hypertension Diabetes Father Hypertension Maternal Uncle Prostate cancer Social History Housing: House Alcohol intake: former Patient Tobacco Use Status: Former Tobacco user Tobacco use type: Cigarette e-Cigarette/Vaping Use: Never Used Second Hand Smoke Exposure: No service: No Current occupational status: employed Current occupational exposures/hazards: No Cognitive needs: No Hearing needs: No Vision needs: No Assessment & Plan Assessment & Plan (1) Constipation: Code(s): K59.00 - Constipation, unspecified Plan: trulance Medications: New plecanatide (Trulance) 3 mg PO DAILY 30 tabs 3RF plecanatide (Trulance) 3 mg PO DAILY 30 tabs 3RF lansoprazole 15 mg PO DAILY 30 caps 1RF dicyclomine 10 mg PO QID 60 caps 0RF Refilled nitroglycerin 0.4%(w/w) (Rectiv) 1 inch [place] BID 30 grams 0RF nitroglycerin 0.4%(w/w) (Rectiv) 1 inch [place] BID 30 grams 0RF Discontinued dicyclomine Discontinued Reason: Doctor's Order 20 mg PO QID 120 tabs 4RF 30 days R10.9 - Unspecified abdominal pain Telehealth Telehealth Location of provider rendering services: practice address Location of patient: address on file Patient Identification confirmed using: Name, : Yes Telehealth method: voice only Patient verbally consented to treatment: Yes Patient verbally consented to billing insurance company: Yes Patient informed of any privacy concerns related to visit: Yes Minutes spent on Phone/Video with Pt.: 8 Coding Level of Care Code Tele Est Pt Level 3 (56819) Diagnoses Constipation K59.00
== END 2023-05-18 16:22 | disposition home or self-care (01) ==
LOC: HO.HGI 15:03
PROVIDERS: PCP Internal Medicine; Visit Provider Internal Medicine Gastroenterology
DX: K59.00 Constipation, unspecified (principal)
CPT/HCPCS: 99213

== ENCOUNTER → 2023-05-18 15:03 | Outpatient (BNVA) | payer OTHER, SELFPAY | PROVIDERS: PCP Internal Medicine; Visit Provider Internal Medicine Gastroenterology ==

== ENCOUNTER 2023-06-13 07:06 | Outpatient (REF) | payer OTHER, SELFPAY ==
[2023-06-13 08:22] LABS: Alanine Aminotransferase 18 U/L (0-31); Albumin Level 4.3 g/dL (3.5-5.0); Alkaline Phosphatase 66 U/L (39-117); Anion Gap 11 (12-20); Aspartate Amino Transferase 15 U/L (5-31); Blood Urea Nitrogen 10 mg/dL (9-16); Calcium 9.5 mg/dL (8.4-10.2); Carbon Dioxide 28 mmol/L (22-29); Chloride 108 mmol/L (96-108); Cholesterol 177 mg/dL (<200); Estimated Glomerular Filt Rate > 60; Glucose Fasting 95 mg/dL (60-99); HDL Cholesterol 33 mg/dL (>40); LDL Cholesterol Calculated 118 mg/dL (<100); Potassium 3.8 mmol/L (3.3-5.1); Sodium 143 mmol/L (135-145); Total Protein 7.5 g/dL (6.5-8.0); Triglycerides 130 mg/dL (<150)
== END 2023-06-13 07:07 | disposition home or self-care (01) ==
LOC: HO.LAB 07:06
PROVIDERS: PCP Internal Medicine; Visit Provider Internal Medicine
DX: Z00.00 Encounter for general adult medical examination without abnormal findings (principal)
CPT/HCPCS: 36415; 80053; 80061

== ENCOUNTER 2023-06-15 14:54 | Outpatient (AMB) | payer OTHER, SELFPAY ==
--- NOTE | 2023-06-15 15:01 | MHC.PC.OV ---
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 Accompanied by: Self / Same As Patient Allergies sulfamethoxazole [From Sulfamethoxazole-Trimethoprim] Allergy (Severe, Verified 06/15/23 15:21) Anaphylaxis trimethoprim [From Sulfamethoxazole-Trimethoprim] Allergy (Severe, Verified 06/15/23 15:21) Anaphylaxis black pepper Allergy (Intermediate, Verified 06/15/23 15:21) throat swelling kiwi Allergy (Intermediate, Verified 06/15/23 15:21) throat swelling pineapple Allergy (Intermediate, Verified 06/15/23 15:21) throat swelling prednisone Adverse Reaction (Severe, Verified 06/15/23 15:21) Anaphylaxis wood Allergy (Intermediate, Uncoded 06/15/23 15:21) hives Medication List - Last Reconciled 06/15/23 by Yazmin Gallo MD dicyclomine 10 mg PO QID epinephrine 0.3 mg IM ONCE lansoprazole 15 mg PO DAILY [Nexplanon ] valacyclovir 1,000 mg PO TID 7 days Tobacco use date assessed: 06/15/23 Dental Screening Dental Screen Date: 06/15/23 Did you have a dental visit in the last 12 months?: Yes Did you have a dental problem in the last 6 months where you did not have access to dental care?: No Was dental information given to patient?: Patient has dentist HPI HPI Comments History of Present Illness Details This is a 28-year-old female with epigastric pain follow by Gastroenterology that complains of blurry vision occasionally and will be referred to Ophthalmology. She also has some scalp sensitivity. She complains of legs being swollen and cold. Feels leg pain when walking over 1 block. Has varicose veins. Will be referred to vascular surgery. Has not started dicyclomine and lansoprazole yet. [facility] Medical History (Updated 06/15/23 @ 15:29 by Yazmin Gallo MD) Pancreatic lesion History of colitis Immunization due Neck pain Seborrheic dermatitis of scalp Overweight (BMI 25.0-29.9) HSV infection Surgical History Hx of colonoscopy History of esophagogastroduodenoscopy (EGD) History of History of wisdom tooth extraction Family History Mother Hypertension Diabetes Father Hypertension Maternal Uncle Prostate cancer Social History Housing: House Alcohol intake: former Patient Tobacco Use Status: Former Tobacco user Tobacco use type: Cigarette e-Cigarette/Vaping Use: Never Used Second Hand Smoke Exposure: No service: No Current occupational status: employed Current occupational exposures/hazards: No Cognitive needs: No Hearing needs: No Vision needs: No Questionnaire PHQ-9 Over the last 2 weeks, how often have you been bothered by any of the following problems? 1. Little interest or pleasure in doing things: not at all 2. Feeling down, depressed, or hopeless: not at all 3. Trouble falling or staying asleep, or sleeping too much: not at all 4. Feeling tired or having little energy: not at all 5. Poor appetite or overeating: not at all 6. Feeling bad about yourself - or that you are a failure or have let yourself or your family down: not at all 7. Trouble concentrating on things, such as reading the newspaper or watching television: not at all 8. Moving or speaking so slowly that other people could have noticed. Or the opposite - being so fidgety or restless that you have been moving around a lot more than usual: not at all 9. Thoughts that you would be better off or of hurting yourself in some way: not at all Total score: 0 Depression Screening Interpretation: Negative Depression Screening Done: Yes 43551 - PHQ-9 Billing: Yes Source: Developed by Drs. Brian Marin, Loretta Hicks, Hany Harrington and colleagues, with an educational maricarmen from [employer]. Thrive Questionnaire Date Thrive assessed: 06/15/23 I am a: Patient What is your living situation today?: I have a steady place to live Within the past 12 months, did the food you bought not last and you didn't have the money to get more?: Never true Within the past 12 months, did you worry whether your food would run out before you got money to buy more?: Never true Do you have trouble paying for medicines?: No Do you have trouble getting transportation to medical appointments?: No Do you have trouble paying your heating and electricity bill?: No Do you have trouble taking care of your child, family member or friend?: No Do you have trouble with day-to-day activities such as bathing, preparing meals, shopping, managing finances, etc.?: No Are you currently unemployed and looking for a job?: No Are you interested in more education?: No Please select the resources that you would like help with: None Currently or been in a relationship where the following occur: no concerns reported THRIVE Score: 0 AUDIT C Alcohol Use Questionnaire (AUDIT-C) 1. How often do you have a drink containing alcohol?: Never Total Score: 0 MADIHA-7 AMB Questionnaire MADIHA-7 Date MADIHA - 7 assessed: 06/15/23 Feeling nervous, anxious, or on edge: 0 = Not at all Not being able to stop or control worryin = Not at all Worrying too much about different things: 0 = Not at all Trouble relaxin = Not at all Being so restless that it is hard to sit still: 0 = Not at all Becoming easily annoyed or irritable: 0 = Not at all Feeling afraid as if something awful might happen: 0 = Not at all Total MADIHA-7 score (0-4 normal; 5-9 mild; 10-14 moderate; 15-21 severe): 0 Source: Developed by Drs. Brian Marin, Loretta Hicks, Hany Harrington and colleagues, with an educational maricarmen from [employer]. MADIHA-7 Assessment Billing MADIHA-7 Assessment Tool: MADIHA-7 Assessment 95043 Review of Systems Const All systems reviewed & are unremarkable except as noted in HPI and below Eyes Reports no additional complaints, Denies change in vision and Denies other visual disturbances Card Denies chest pain at rest, Denies chest pain with activity, Denies edema, Denies irregular heart rhythm, Denies claudication, Denies dyspnea, Denies dyspnea on exertion, Denies orthopnea, Denies paroxysmal nocturnal dyspnea and Denies slow heart rate Resp Denies cough, Denies dyspnea and Denies dyspnea on exertion Physical exam (Primary Care) Vital Signs: Last Vital Signs BP 120/72 06/15/23 15:03 BMI result Body Mass Index 30.0 Tobacco/Smoking Status: Tobacco use Status Tobacco use date assessed 06/15/23 06/15/23 15:10 Patient Tobacco Use Status Former Tobacco user 06/15/23 15:10 Tobacco use type Cigarette 06/15/23 15:10 e-Cigarette/Vaping Use Never Used 06/15/23 15:10 PHQ-9: PHQ-9 Score PHQ-9: Total score 0 06/15/23 15:10 Depression Screening Interpretation: Negative Thrive Assessment: Date of Thrive Assessment Date Thrive assessed 06/15/23 06/15/23 15:10 Currently or been in a relationship where the following occur: no concerns reported Resp Effort & Inspection: normal respiratory effort Auscultation: clear to auscultation bilaterally Cardio Jugular venous distension: no JVD Rate: regular rate Rhythm: regular rhythm Heart sounds: S1 normal heart sound present and S2 normal heart sound present Extrem General: Yes full ROM Assessment and Plan Assessment & Plan (1) Venous (peripheral) insufficiency: Code(s): I87.2 - Venous insufficiency (chronic) (peripheral) Plan: Referred to vascular surgery. (2) Blurry vision: Code(s): H53.8 - Other visual disturbances Plan: Referred to Ophthalmology. (3) Epigastric pain: Code(s): R10.13 - Epigastric pain Plan: Start lansoprazole. Follow-up with Gastroenterology. Orders: Referrals Ophthalmology Referral H53.8 - Other visual disturbances Vascular Surgery Referral I87.2 - Venous insufficiency (chronic) (peripheral) Coding Level of Care Code Est Pt Level 3 (20011) Diagnoses Venous (peripheral) insufficiency I87.2 Blurry vision H53.8 Epigastric pain R10.13 Additional Codes MADIHA-7 Assessment Billing - MADIHA-7 Assessment Tool: MADIHA-7 Assessment 61046 ([id number]) Time Spent (min) 18
[2023-06-15 15:03] VITALS: BP 120/72
== END 2023-06-15 15:31 | disposition home or self-care (01) ==
PROVIDERS: PCP Internal Medicine; Visit Provider Internal Medicine
DX: I87.2 Venous insufficiency (chronic) (peripheral) (principal); H53.8 Other visual disturbances; R10.13 Epigastric pain
CPT/HCPCS: 99213

== ENCOUNTER 2023-09-15 13:26 | Outpatient (AMB) | payer OTHER, SELFPAY ==
--- NOTE | 2023-09-15 13:28 | MHC.OFFVIS ---
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 Pt states LE discoloration and swelling, has itching and tingling ( like there is ants crawling) Accompanied by: Daughter Allergies sulfamethoxazole [From Sulfamethoxazole-Trimethoprim] Allergy (Severe, Verified 09/15/23 13:34) Anaphylaxis trimethoprim [From Sulfamethoxazole-Trimethoprim] Allergy (Severe, Verified 09/15/23 13:34) Anaphylaxis black pepper Allergy (Intermediate, Verified 09/15/23 13:34) throat swelling kiwi Allergy (Intermediate, Verified 09/15/23 13:34) throat swelling pineapple Allergy (Intermediate, Verified 09/15/23 13:34) throat swelling prednisone Adverse Reaction (Severe, Verified 09/15/23 13:34) Anaphylaxis wood Allergy (Intermediate, Uncoded 09/15/23 13:34) hives HPI HPI TILE 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 Complaints include pain over varicosities, swelling of lower extremities, cramping, fatigue, and heaviness of the lower extremities. It has been affecting there daily activities including walking. It is noted more so in right leg. Also of note she has left heel and plantar foot pain Patient denies any previous venous surgery or injections. Patient denies any history of DVT/ PE. Patient denies any history of phlebitis. Trial of compression includes - [id number] They now present for vascular evaluation regarding their varicose veins. [facility] Medical History Pancreatic lesion History of colitis Immunization due Neck pain Seborrheic dermatitis of scalp Overweight (BMI 25.0-29.9) HSV infection Surgical History Hx of colonoscopy History of esophagogastroduodenoscopy (EGD) History of History of wisdom tooth extraction Family History Mother Hypertension Diabetes Father Hypertension Maternal Uncle Prostate cancer Social History Housing: House Alcohol intake: former Patient Tobacco Use Status: Former Tobacco user Tobacco use type: Cigarette e-Cigarette/Vaping Use: Never Used Second Hand Smoke Exposure: No service: No Current occupational status: employed Current occupational exposures/hazards: No Cognitive needs: No Hearing needs: No Vision needs: No Review of Systems Const Reports as per HPI ENT Reports no additional complaints Card Denies chest pain, Denies chest pain at rest and Denies chest pain with activity Resp Denies chest congestion and Denies cough GI Reports no additional complaints Musc Details: pain over varicosities, aching of lower extremities, swelling, cramping, heaviness and tiredness, itching Denies abnormal gait Skin/Breast Reports pruritus and Denies wounds Neuro Reports no additional complaints and Denies abnormal gait Psych Denies no additional complaints Physical Exam Vital Signs: BMI result Body Mass Index 30.0 Const General: cooperative, healthy appearing and comfortable Orientation/consciousness: oriented to person, oriented to place and oriented to time Neck Carotids: no bruits Chest Chest palpation & inspection: normal inspection of the chest and normal palpation of entire chest wall Resp Effort & Inspection: normal respiratory effort and able to speak in complete sentences Cardio Rate: regular rate Heart sounds: S1 normal heart sound present and S2 normal heart sound present Peripheral pulses: Peripheral pulses 2+ throughout GI Inspection: Yes normal to inspection Skin Other: +2 edema CEAP Classification C4 - skin color changes Ep - Etiology Primary As - superficial veins P - reflux General skin exam: dry skin Neuro General: oriented to person, oriented to place and oriented to time Extrem Right lower extremity: full ROM, normal capillary refill and edema Left lower extremity: full ROM, normal capillary refill and edema Psych Mental Status: mental status grossly normal Assessment & Plan Assessment & Plan (1) Varicose veins of right lower extremity with inflammation: Code(s): I83.11 - Varicose veins of right lower extremity with inflammation Category: Medical Plan: In short, the patient has evidence of venous insufficiency. I have discussed the pathophysiology with the patient. In addition I have provided informational material regarding venous disease to the patient. We have discussed conservative measures including compression, elevation, and exercise. I have also provided a handout regarding appropriate use of compression stockings and where to purchase good compression stockings as well. I have taken the liberty of ordering venous insufficiency testing with the patient. They will follow up with me after testing. The patient had an opportunity to ask questions regarding the treatment plan. All questions were answered. Imaging studies, laboratory studies and physical exam results were discussed and reviewed in detail. No major barriers to understanding were identified. The patient expressed understanding and agreement with the above treatment plan. The patient is aware they should contact our office by phone for worsening of the current condition or the appearance of new symptoms. Thank you for allowing me to participate in the vascular care of this patient. If you have any questions or concerns regarding the treatment for the above condition please do not hesitate to contact me. The office telephone contact is [phone]. This note is constructed using voice recognition software. While every effort has been made to ensure accuracy, laundry or dry cleaners counter clerk errors may have been included. Thank you for allowing me to participate in the care of your patient. Yours sincerely, Chan Grewal MD, FACS, R.P.V.I. (2) Bone spur of inferior portion of left calcaneus: Code(s): M77.32 - Calcaneal spur, left foot Category: Medical Plan: Also I do appreciate direct tenderness over the left calcaneus. This may be secondary to a bone spur. I did discuss appropriate footwear and shoe inserts with the patient. Should it persist may benefit from a podiatric evaluation. Orders: Orders US venous duplex LE BI 1 Week I83.11 - Varicose veins of right lower extremity with inflammation Coding Level of Care Code New Pt Level 4 (10954) Diagnoses Varicose veins of right lower extremity with inflammation I83.11 Bone spur of inferior portion of left calcaneus M77.32
== END 2023-09-15 13:55 | disposition home or self-care (01) ==
PROVIDERS: PCP Internal Medicine; Visit Provider Surgery Vascular Surgery
DX: I83.11 Varicose veins of right lower extremity with inflammation (principal); M77.32 Calcaneal spur, left foot
CPT/HCPCS: 99204

== ENCOUNTER → 2023-09-15 13:26 | Outpatient (BNVA) | payer OTHER, SELFPAY | PROVIDERS: PCP Internal Medicine; Visit Provider Surgery Vascular Surgery | DX: I83.11 Varicose veins of right lower extremity with inflammation (principal); M77.32 Calcaneal spur, left foot | CPT/HCPCS: 99202 ==

== ENCOUNTER 2023-09-25 10:30 | Outpatient (REF) | payer OTHER, SELFPAY ==
--- NOTE | ~2023-09-25 | US_ITS ---
EXAMINATION: US LOWER EXTREMITY VENOUS (REFLUX EXAM), BILATERAL CLINICAL INDICATION: Varicose veins of right lower extremity COMPARISON: None. TECHNIQUE: Color flow triplex imaging and compression Doppler was performed to evaluate both the deep and the superficial systems bilaterally. To evaluate the superficial system, the examination was performed in the upright position. Color-flow Doppler ultrasound and compression ultrasound were utilized. In addition, maneuvers were utilized to demonstrate reflux. FINDINGS: 1. DEEP VENOUS ULTRASOUND OF THE RIGHT LOWER EXTREMITY: Common Femoral Vein: Compressible, normal respiratory variation and augmented flow. Femoral Vein: Compressible, normal color flow and augmentation. Popliteal Vein: Compressible, normal augmentation. Deep Reflux: There is no evidence of reflux in the deep system in either the common femoral vein or the popliteal vein. There is no evidence of a Dawkins's cyst. 2. SUPERFICIAL ULTRASOUND WITH DOPPLER OF RIGHT LOWER EXTREMITY: GREAT SAPHENOUS VEIN: Saphenofemoral Junction: 0.6 cm; Reflux: 0 ms Proximal Thigh: 0.4 cm; Reflux: 0 ms Mid Thigh: 0.4 cm; Reflux: 1936 ms Above Knee: 0.4 cm; Reflux: 0 ms At Knee: 0.4 cm; Reflux: 0 ms Below Knee: 0.2 cm; Reflux: 0 ms Mid Calf: 0.2 cm; Reflux: 0 ms Ankle: 0.2 cm; Reflux: 0 ms DUPLICATED MEDIAL GREAT SAPHENOUS VEIN: Diameter: None Imaged Reflux: NA DUPLICATED LATERAL GREAT SAPHENOUS VEIN: Diameter: 0.2 Reflux: 0 ms SMALL SAPHENOUS VEIN: Proximal: 0.3 cm; Reflux: 0 ms Distal: 0.2 cm; Reflux: 0 ms VEIN OF GIACOMINI: None Imaged. PERFORATORS: Location: None Imaged Size: NA Reflux: NA VARICOSITIES: Location: None Imaged Size: NA Reflux: NA 3. DEEP VENOUS ULTRASOUND OF THE LEFT LOWER EXTREMITY: Common Femoral Vein: Compressible, normal respiratory variation and augmented flow. Femoral Vein: Compressible, normal color flow and augmentation. Popliteal Vein: Compressible, normal augmentation. Deep Reflux: There is no evidence of reflux in the deep system in either the common femoral vein or the popliteal vein. There is no evidence of a Dawkins's cyst. 4. SUPERFICIAL ULTRASOUND WITH DOPPLER OF LEFT LOWER EXTREMITY: GREAT SAPHENOUS VEIN: Saphenofemoral Junction: 0.8 cm; Reflux: 0 ms Proximal Thigh: 0.5 cm; Reflux: 0 ms Mid Thigh: 0.3 cm; Reflux: 0 ms Above Knee: 0.4 cm; Reflux: 0 ms At Knee: 0.4 cm; Reflux: 0 ms Below Knee: 0.2 cm; Reflux: 0 ms Mid Calf: 0.2 cm; Reflux: 0 ms Ankle: 0.2 cm; Reflux: 0 ms DUPLICATED MEDIAL GREAT SAPHENOUS VEIN: Diameter: None Imaged Reflux: NA DUPLICATED LATERAL GREAT SAPHENOUS VEIN: Diameter: 0.2 Reflux: 0 ms SMALL SAPHENOUS VEIN: Proximal: 0.4 cm; Reflux: 0 ms Distal: 0.2 cm; Reflux: 0 ms VEIN OF GIACOMINI: None Imaged. PERFORATORS: Location: None Imaged Size: NA Reflux: NA VARICOSITIES: Location: None Imaged Size: NA Reflux: NA US/US venous duplex LE BI IMPRESSION: Right: The great saphenous vein measures 0.4 cm, with reflux of 1936 ms in the mid thigh. Left: No reflux in the left great saphenous vein.
== END 2023-09-25 10:31 | disposition home or self-care (01) ==
LOC: HO.US 10:30
PROVIDERS: PCP Internal Medicine; Visit Provider Surgery Vascular Surgery
DX: I83.11 Varicose veins of right lower extremity with inflammation (principal)
CPT/HCPCS: 93970

== ENCOUNTER 2023-11-18 15:26 | Outpatient (AMB) | payer OTHER, SELFPAY ==
--- NOTE | 2023-11-18 15:41 | AM.OFFWIN_ITS ---
Intake Vital Signs 11/18/23 15:42 Height 5 ft 1 in Weight 157 lb BMI 29.7 BP 120/74 Blood Pressure Location Rt brachial Position Sitting Pulse 75 Pulse Source Pulse Oximeter Temp 98.5 F Temp Source Oral Pulse Oximetry (%) 100 Oxygen Delivery Method Room Air Intake Visit Reasons: EP-Covid symptoms Intake Note: Patient here for runny nose, congestion, cough and SOB which started about 2 days ago. Patient Tobacco Use Status: Former Tobacco user Allergies sulfamethoxazole [From Sulfamethoxazole-Trimethoprim] Allergy (Severe, Verified 11/18/23 15:43) Anaphylaxis trimethoprim [From Sulfamethoxazole-Trimethoprim] Allergy (Severe, Verified 11/18/23 15:43) Anaphylaxis black pepper Allergy (Intermediate, Verified 11/18/23 15:43) throat swelling kiwi Allergy (Intermediate, Verified 11/18/23 15:43) throat swelling pineapple Allergy (Intermediate, Verified 11/18/23 15:43) throat swelling prednisone Adverse Reaction (Severe, Verified 11/18/23 15:43) Anaphylaxis wood Allergy (Intermediate, Uncoded 11/18/23 15:43) hives Do you need a note to return to daycare/school/sports/work: Yes HPI EP-Covid symptoms HPI Details This note is constructed using voice recognition software. While every effort has been made to ensure accuracy, chemical treatment operator errors may have been included. The patient is a 28 year old female who presents to the clinic today with cough, congestion, sinus congestion, and body aches for the past 2 days. She reports that she had a fever 2 days ago but has not had 1 since. She is not taking anything to improve this. 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 She denies shortness of breath. [facility] Medical History Pancreatic lesion History of colitis Immunization due Neck pain Seborrheic dermatitis of scalp Overweight (BMI 25.0-29.9) HSV infection Surgical History Hx of colonoscopy History of esophagogastroduodenoscopy (EGD) History of History of wisdom tooth extraction Family History Mother Hypertension Diabetes Father Hypertension Maternal Uncle Prostate cancer Social History Housing: House Alcohol intake: former Patient Tobacco Use Status: Former Tobacco user Tobacco use type: Cigarette e-Cigarette/Vaping Use: Never Used Second Hand Smoke Exposure: No service: No Current occupational status: employed Current occupational exposures/hazards: No Cognitive needs: No Hearing needs: No Vision needs: No Review of Systems Const All systems reviewed & are unremarkable except as noted in HPI and below Physical Exam Vital Signs: Last Vital Signs Temp 98.5 F 11/18/23 15:42 Pulse 75 11/18/23 15:42 BP 120/74 11/18/23 15:42 Pulse Ox 100 11/18/23 15:42 Oxygen Delivery Method Room Air 11/18/23 15:42 BMI result Body Mass Index 29.7 Const General: cooperative, healthy appearing, comfortable and no acute distress Orientation/consciousness: patient oriented x3 Limitations: no limitations HEENT Head: Yes normal to inspection Ears: hearing grossly normal bilaterally, external ears normal and TM's normal bilaterally General nose exam: Normal external nose present, Normal nares present and No nasal discharge present Face and sinus: Yes normal facial exam and Yes sinuses nontender Mouth: Normal oral and palatal mucosa present and moist mucous membranes Throat: Yes tonsils normal, Yes uvula midline and Yes posterior oropharynx abnormal (Erythema) Eyes General: appearance normal, both eyes and all related structures Neck Neck: Yes normal visual inspection Resp Effort & Inspection: normal respiratory effort, able to speak in complete sentences, Actively coughing, no respiratory distress, not tachypneic, no tripod positioning and no use of accessory muscles Auscultation: clear to auscultation bilaterally Cardio Jugular venous distension: no JVD Rate: regular rate Rhythm: regular rhythm Heart sounds: S1 normal heart sound present, S2 normal heart sound present, no click, no gallops, no murmurs and no rubs Skin General skin exam: no rashes or lesions noted, elasticity normal and turgor normal Neuro General: patient oriented x3 Extrem General: Yes normal to inspection and Yes no clubbing, cyanosis or edema Assessment & Plan Assessment & Plan (1) Upper respiratory tract infection: Code(s): J06.9 - Acute upper respiratory infection, unspecified Qualifiers: URI type: unspecified URI Qualified Code(s): J06.9 - Acute upper r espiratory infection, unspecified Plan: Viral swab obtained to rule out Covid based on symptoms. Advised mask wearing while symptomatic and quarantine per current CDC guidelines. Reviewed at home support methods including hydration, humidification, vix vapor rub, sinus rinse. Discussed treatment with antiviral therapy for covid with paxlovid including appropriate use and side effects, and need to start medication within 5 day of symptom onset, preferably within 48 hours of symptom onset. Patient wishes to decline paxlovid. Advised follow up with worsening symptoms such as dyspnea at rest, which would require emergent evaluation. Plan See above for full details and plan. Coding Level of Care Code Est Pt Level 3 (72899) Diagnoses Upper respiratory tract infection, unspecified type J06.9 URI type: unspecified URI
[2023-11-18 15:42] VITALS: BP 120/74; PULSE 75; TEMP 36.9; O2SAT 100; BMI 29.7
== END 2023-11-18 16:01 | disposition home or self-care (01) ==
PROVIDERS: PCP Internal Medicine; Visit Provider Registered Nurse
DX: J06.9 Acute upper respiratory infection, unspecified (principal)

== ENCOUNTER 2023-11-18 15:26 | Outpatient (REF) | payer OTHER, SELFPAY ==
[2023-11-19 10:42] LABS: Influenza A PCR NEGATIVE (Negative); Influenza B PCR NEGATIVE (Negative); Resp Syncy Virus RNA Qual PCR NEGATIVE (Negative); SARS COV2 PCR INHOUSE NEGATIVE (Negative)
== END 2023-11-18 15:27 | disposition home or self-care (01) ==
LOC: HO.LAB 15:26
PROVIDERS: PCP Internal Medicine; Visit Provider Registered Nurse
DX: J06.9 Acute upper respiratory infection, unspecified (principal)
CPT/HCPCS: 0241U; 99212

== ENCOUNTER → 2023-11-23 15:24 | Outpatient (BNVA) | payer OTHER, SELFPAY | PROVIDERS: PCP Internal Medicine; Visit Provider Internal Medicine Gastroenterology | DX: K59.00 Constipation, unspecified (principal) | CPT/HCPCS: 99212 ==

== ENCOUNTER 2024-01-04 16:12 | Outpatient (AMB) | payer OTHER, SELFPAY ==
--- NOTE | 2024-01-04 16:17 | A.OFFPC_ITS ---
Vital Signs 01/04/24 16:22 Height 5 ft 1 in Weight 150 lb 1.903 oz BMI 28.4 BP 120/78 Blood Pressure Location Lt brachial Position Sitting Intake Visit Reasons: annual exam Intake Note: Patient here for an Annual Physical Exam Director Biologics Required: No Accompanied by: Self / Same As Patient Allergies sulfamethoxazole [From Sulfamethoxazole-Trimethoprim] Allergy (Severe, Verified 01/04/24 16:29) Anaphylaxis trimethoprim [From Sulfamethoxazole-Trimethoprim] Allergy (Severe, Verified 01/04/24 16:29) Anaphylaxis black pepper Allergy (Intermediate, Verified 01/04/24 16:29) throat swelling kiwi Allergy (Intermediate, Verified 01/04/24 16:29) throat swelling pineapple Allergy (Intermediate, Verified 01/04/24 16:29) throat swelling prednisone Adverse Reaction (Severe, Verified 01/04/24 16:29) Anaphylaxis wood Allergy (Intermediate, Uncoded 01/04/24 16:29) hives Medication List - Last Reconciled 01/04/24 by Yazmin Gallo MD dicyclomine 10 mg PO QID epinephrine 0.3 mg (0.3 mL) IM ONCE [Nexplanon ] valacyclovir 1,000 mg PO TID 7 days Tobacco use date assessed: 06/15/23 Dental Screening Dental Screen Date: 06/15/23 HPI HPI Comments History of Present Illness Details The patient is a 28-year-old female presenting for physical exam. She has chronic wrist pain and a need for medication management. The patient reports a persistent bilateral wrist discomfort described as stepping on them, leading to functional impairment. The pain has been moderate to severe, affecting her daily activities. There is no history of trauma or injury noted, although the duration of symptoms has not been specifically stated. Additionally, the patient seeks management of her allergies and medication including Dicyclomine for gastrointestinal issues and episodic use of Lasovirax. The patient reports past surgery including a section and wisdom tooth extraction. There is a family history of essential hypertension with both parents and pre-diabetes linked to the mother. Patient previously smoked and consumed alcohol but does not engage in these activities anymore. Currently, she experiences mild depression with a PHQ-9 score of 11 and has not sought counseling. Pap smear done few years ago was normal. [facility]LY [facility] Medical History (Updated 01/04/24 @ 16:41 by Yazmin Gallo MD) Pancreatic lesion History of colitis Immunization due Neck pain Seborrheic dermatitis of scalp Overweight (BMI 25.0-29.9) HSV infection Surgical History Hx of colonoscopy History of esophagogastroduodenoscopy (EGD) History of History of wisdom tooth extraction Family History (Updated 01/04/24 @ 16:33 by Yazmin Gallo MD) Mother Hypertension Father Hypertension Maternal Uncle Prostate cancer Social History Housing: House Alcohol intake: former Patient Tobacco Use Status: Former Tobacco user Tobacco use type: Cigarette e-Cigarette/Vaping Use: Never Used Second Hand Smoke Exposure: No service: No Current occupational status: employed Current occupational exposures/hazards: No Cognitive needs: No Hearing needs: No Vision needs: No Questionnaire PHQ-9 Over the last 2 weeks, how often have you been bothered by any of the following problems? 1. Little interest or pleasure in doing things: nearly every day 2. Feeling down, depressed, or hopeless: not at all 3. Trouble falling or staying asleep, or sleeping too much: not at all 4. Feeling tired or having little energy: nearly every day 5. Poor appetite or overeating: not at all 6. Feeling bad about yourself - or that you are a failure or have let yourself or your family down: several days 7. Trouble concentrating on things, such as reading the newspaper or watching television: several days 8. Moving or speaking so slowly that other people could have noticed. Or the opposite - being so fidgety or restless that you have been moving around a lot more than usual: nearly every day 9. Thoughts that you would be better off or of hurting yourself in some way: not at all Total score: 11 Depression Screening Interpretation: Positive Depression Screening Follow-up: Existing condition and Follow-up Visit Requested Depression Screening Done: Yes 90894 - PHQ-9 Billing: Yes Source: Developed by Drs. Brian Marin, Loretta Hicks, Hany Harrington and colleagues, with an educational maricarmen from [facility]. Thrive Questionnaire Date Thrive assessed: 06/15/23 I am a: Patient What is your living situation today?: I have a steady place to live Within the past 12 months, did the food you bought not last and you didn't have the money to get more?: Never true Within the past 12 months, did you worry whether your food would run out before you got money to buy more?: Never true Do you have trouble paying for medicines?: I choose not to answer this question Do you have trouble getting transportation to medical appointments?: No Do you have trouble paying your heating and electricity bill?: No Do you have trouble taking care of your child, family member or friend?: No Do you have trouble with day-to-day activities such as bathing, preparing meals, shopping, managing finances, etc.?: No Are you currently unemployed and looking for a job?: No Are you interested in more education?: No Please select the resources that you would like help with: None Currently or been in a relationship where the following occur: No concerns reported THRIVE Score: 0 AUDIT C Alcohol Use Questionnaire (AUDIT-C) 1. How often do you have a drink containing alcohol?: Never Total Score: 0 Score Reviewed/Action Taken: No MADIHA-7 AMB Questionnaire MADIHA-7 Date MADIHA - 7 assessed: 06/15/23 Feeling nervous, anxious, or on edge: 3 = Nearly every day Not being able to stop or control worryin = Several days Worrying too much about different things: 3 = Nearly every day Trouble relaxin = Nearly every day Being so restless that it is hard to sit still: 3 = Nearly every day Becoming easily annoyed or irritable: 2 = More than half the days Feeling afraid as if something awful might happen: 0 = Not at all Total MADIHA-7 score (0-4 normal; 5-9 mild; 10-14 moderate; 15-21 severe): 15 Source: Developed by Drs. Brian Marin, Loretta Hicks, Hany Harrington and colleagues, with an educational maricarmen from [facility]. MADIHA-7 Assessment Billing MADIHA-7 Assessment Tool: MADIHA-7 Assessment 47582 Review of Systems Const All systems reviewed & are unremarkable except as noted in HPI and below Card Denies chest pain at rest, Denies chest pain with activity, Denies edema, Denies irregular heart rhythm, Denies claudication, Denies dyspnea, Denies dyspnea on exertion, Denies orthopnea, Denies paroxysmal nocturnal dyspnea and Denies slow heart rate Resp Denies cough, Denies dyspnea and Denies dyspnea on exertion Musc Reports arthralgias Physical exam (Primary Care) Vital Signs: Last Vital Signs BP 120/78 01/04/24 16:22 BMI result Body Mass Index 28.4 Tobacco/Smoking Status: Tobacco use Status Tobacco use date assessed 06/15/23 01/04/24 16:21 Patient Tobacco Use Status Former Tobacco user 01/04/24 16:21 Tobacco use type Cigarette 01/04/24 16:21 e-Cigarette/Vaping Use Never Used 01/04/24 16:21 PHQ-9: PHQ-9 Score PHQ-9: Total score 01/04/24 16:34 Depression Screening Interpretation: Positive Depression Screening Follow-up: Existing condition and Follow-up Visit Requested Thrive Assessment: Date of Thrive Assessment Date Thrive assessed 06/15/23 01/04/24 16:21 Currently or been in a relationship where the following occur: No concerns reported [facility] Head: Yes normal to inspection, Yes normocephalic and Yes atraumatic Ears: external ears normal Eyes General: appearance normal, both eyes and all related structures Eyelids: Yes eyelids normal Conjunctivae: conjunctivae normal Neck Neck: Yes normal visual inspection and Yes supple Resp Effort & Inspection: normal respiratory effort Auscultation: clear to auscultation bilaterally Cardio Jugular venous distension: no JVD Rate: regular rate Rhythm: regular rhythm Heart sounds: S1 normal heart sound present and S2 normal heart sound present GI Inspection: Yes normal to inspection Palpation (GI): Soft to palpation and nontender Auscultation: normal bowel sounds Skin General skin exam: no rashes or lesions noted Neuro General: no focal motor deficits Extrem General: Yes full ROM Psych Appearance: grossly normal Coding Level of Care Code Est Pt Level 3 (52428) Est Pt Prev Care 18-39y(05441) Diagnoses Physical exam Z00.00 Left wrist pain M25.532 Right wrist pain M25.531 Additional Codes MADIHA-7 Assessment Billing - MADIHA-7 Assessment Tool: MADIHA-7 Assessment 13361 ([id number]) PHQ-9 - 20173 - PHQ-9 Billing: Yes ([id number]) Time Spent (min) 33 Assessment & Plan Assessment & Plan (1) Physical exam: Code(s): Z00.00 - Encounter for general adult medical examination without abnormal findings Category: Medical (2) Left wrist pain: Code(s): M25.532 - Pain in left wrist Category: Medical (3) Right wrist pain: Code(s): M25.531 - Pain in right wrist Category: Medical Plan - Allergic Conditions: Continue avoidance of known allergens; prescribe Epipen for anaphylaxis management as needed. - Wrist Pain: Referral to orthopedics and occupational therapy for further evaluation and management. Recommend obtaining wrist imaging X-rays). - Depression: Discussed current mental health status; explore potential counseling or therapy options. - Family History of Hypertension and Pre-diabetes: No new interventions currently; maintain regular monitoring and encourage lifestyle discussions. - Medication Management: Refill Lasovirax usage daily as necessary for symptoms; continue Dicyclomine for gastrointestinal discomfort. Patient was informed and verbally consented to the use of an ambient scribe for clinic note documentation during this visit. During our visit, we discussed the management of the patient's various conditions extensively. For her wrist pain, a referral to orthopedics and occupational therapy was made, and we planned for wrist imaging to understand the underlying cause better. Allergies are to be managed with strict avoidance of known triggers, with an Epipen prescribed for emergencies. Her mild depression was discussed; however, the patient has not pursued mental health counseling, and we considered the potential benefits of this intervention. Regarding family history, we discussed the importance of monitoring for hypertension and pre-diabetes, highlighting her parents' medical histories. All therapies and referrals were discussed with the patient, and she expressed understanding and agreement with the proposed management plans. Orders: Orders XR hand wrist RT Today M25.531 - Pain in right wrist OT Evaluation and Treatment Today M25.531 - Pain in right wrist, M25.532 - Pain in left wrist XR hand wrist LT Today M25.532 - Pain in left wrist Referrals Orthopedics Referral M25.531 - Pain in right wrist, M25.532 - Pain in left wrist Patient Instructions: - Avoid known allergens such as sulfa, kiwi, black pepper, pineapple, prednisone, and wood. - Use Epipen only in the event of an anaphylactic reaction. - Adhere to scheduled occupational therapy and orthopedic consultations. - Take Dicyclomine as prescribed for gastrointestinal discomfort. - Follow up on wrist imaging as soon as scheduled. - Maintain a balanced diet, increased fiber intake, hydration, and regular exercise.
[2024-01-04 16:22] VITALS: BP 120/78; BMI 28.4
== END 2024-01-04 16:38 | disposition home or self-care (01) ==
PROVIDERS: PCP Internal Medicine; Visit Provider Internal Medicine
DX: Z00.00 Encounter for general adult medical examination without abnormal findings (principal); M25.532 Pain in left wrist; M25.531 Pain in right wrist

== ENCOUNTER → 2024-01-04 16:12 | Outpatient (BNVA) | payer OTHER, SELFPAY | PROVIDERS: PCP Internal Medicine; Visit Provider Internal Medicine | DX: Z00.01 Encounter for general adult medical examination with abnormal findings (principal); M25.532 Pain in left wrist; M25.531 Pain in right wrist | CPT/HCPCS: 96127; 99212 ==

== ENCOUNTER 2024-02-01 09:27 | Outpatient (REF) | payer OTHER, SELFPAY | END 2024-02-01 09:28 | disposition home or self-care (01) | LOC: HO.HOSX 09:27 | DX: M25.532 Pain in left wrist (principal); M25.531 Pain in right wrist; M65.4 Radial styloid tenosynovitis [de Quervain]; R20.0 Anesthesia of skin; R20.2 Paresthesia of skin | CPT/HCPCS: 20550; 73110; 99202; J1100; J2003 ==

== ENCOUNTER 2024-02-01 15:21 | Outpatient (AMB) | payer OTHER, SELFPAY ==
--- NOTE | 2024-02-01 15:27 | A.OFFVIS_ITS ---
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 Patient reports this his constant throughout the day and gets worse as the day goes on. Describes pain as burning, occasionally she has tingling in her bilateral 1st and 5th digits and along side the ulnar aspect of her wrists. Reports difficulty with lifting, gripping, grasping, and squeezing. She says she has felt as if she is going to drop objects from her hands so she sets them down to avoid this. Patient expresses pain with ulnar deviation, radial deviation, flexion and extension of her bilateral wrist. 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 She uses hand braces at work to immobilize her wrist as much as possible to avoid pain with movement. Has tried Tylenol with mild adequate relief. 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 Patient states that the right wrist bothers her more than the left on a regular basis but she has more pain in the left in the office today. Patient states that this pain is primarily on both the radial and ulnar aspects of the bilateral wrists, and then the pain in the radial aspects is worse patient states that this pain worsens with activity, and is improved with rest, immobilization and braces, and with Tylenol or ibuprofen. 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 Patient reports that the numbness and tingling she experiences throughout her bilateral hands, and is intermittent, but daily, and worse at night. No other acute complaints or concerns at this time FORMERLY [facility] Medical History Pancreatic lesion History of colitis Immunization due Neck pain Seborrheic dermatitis of scalp Overweight (BMI 25.0-29.9) HSV infection Surgical History Hx of colonoscopy History of esophagogastroduodenoscopy (EGD) History of History of wisdom tooth extraction Family History (Updated 01/04/24 @ 16:33 by Yazmin Gallo MD) Mother Hypertension Father Hypertension Maternal Uncle Prostate cancer Social History Housing: House Alcohol intake: former Patient Tobacco Use Status: Former Tobacco user Tobacco use type: Cigarette e-Cigarette/Vaping Use: Never Used Second Hand Smoke Exposure: No service: No Current occupational status: employed Current occupational exposures/hazards: No Cognitive needs: No Hearing needs: No Vision needs: No Review of Systems Const All systems reviewed & are unremarkable except as noted in HPI and below Physical Exam Vital Signs: BMI result Body Mass Index 29.1 Extrem Other: Neuro: Normal sensation of the tips of all digits of bilateral hands in the office today. No thenar or intrinsic wasting. Good APB muscle firing and good finger cross. Vascular: Capillary refill brisk. Pain: Tenderness to palpation of bilateral radial styloid, worse on the right Positive Aurelia test bilaterally, worse on the right No tenderness to palpation of bilateral ulnar styloid, DRUJ, or elsewhere on bilateral hands or wrists ROM: Patient can make a fist and extend all their digits. Pain with resisted flexion and extension of bilateral wrists Skin: No lacerations or abrasions noted. General: No ecchymosis. No erythema or evidence of infection. [] Office Procedures AMB Tendon Injection Tendon Injection Details: Right de Quervain injection [id number] Tendon Sheath Injection All charges added?: Procedure code (CPT) selection complete Results Reviewed Results Reviewed: X-rays obtained in the office today and independently reviewed by me, Jad Medina PA-C, demonstrate no fracture or acute bony abnormality of bilateral hands or wrists. Assessment & Plan Assessment & Plan (1) De Quervain's tenosynovitis, bilateral: Code(s): M65.4 - Radial styloid tenosynovitis [de Quervain] Category: Medical (2) Left wrist pain: Code(s): M25.532 - Pain in left wrist Category: Medical (3) Right wrist pain: Code(s): M25.531 - Pain in right wrist Category: Medical (4) Numbness and tingling in both hands: Code(s): R20.0 - Anesthesia of skin; R20.2 - Paresthesia of skin Category: Medical Plan 1. De Quervain tenosynovitis, right Patient is educated about this condition Patient is educated about the treatment options available Patient would like to proceed with steroid injection Injection #1: The risks and benefits of a steroid injection including but not limited to risk of damage to blood vessels, nerves, tendons, infection, skin bleaching, failure to improve symptoms, increased pain, and possible need for further injections or other intervention were discussed with the patient and the patient wishes to proceed with the steroid injection. Once consent was obtained, I aseptically prepped the area over the 1st dorsal compartment of the right thumb. I then injected the 1st dorsal compartment with a combination of 1 mL of dexamethasone (4mg/ml), and 1% lidocaine. The patient tolerated the procedure well with no complications and good resolution of their symptoms prior to leaving clinic. If the patient continues to have pain 6-8 weeks following this injection, they may call to schedule appointment to discuss alternative treatment options 2. De Quervain tenosynovitis, left Patient would like to proceed with injection of the right 1st prior to any injection on left, as she finds the right side more bothersome Patient will follow-up in 2 weeks for discussion of potential injection for left de Quervain tenosynovitis Patient is also fit for bilateral comfort cool braces to be worn with daytime activities 3. Bilateral hand numbness and tingling Symptoms intermittent, daily, worse at night At this time, patient was referred for EMG and nerve conduction study for assessment of the health of the nerves of bilateral upper extremities Patient will follow-up after EMG and nerve conduction study for results review and discussion of further treatment options if indicated Patient was amenable to this plan 4. Bilateral wrist tendinitis Patient was advised that she should keep her appointment with occupational therapy that she has next week for treatment of her bilateral wrist tendinitis Patient was amenable to this plan Orders: Orders XR wrist LT min 3V Today M25.532 - Pain in left wrist NE nerve conduction velocity Today R20.0 - Anesthesia of skin, R20.2 - Paresthesia of skin XR wrist RT min 3V Today M25.531 - Pain in right wrist NE electromyogram (EMG) Today R20.0 - Anesthesia of skin, R20.2 - Paresthesia of skin Coding Level of Care Code New Pt Level 3 (23572) Diagnoses De Quervain's tenosynovitis, bilateral M65.4 Left wrist pain M25.532 Right wrist pain M25.531 Numbness and tingling in both hands R20.0; R20.2 CPT Codes Tendon Injection - Tendon Injection 1: [id number] Tendon Sheath Injection ([id number])
[2024-02-01 15:31] VITALS: BMI 29.1
== END 2024-02-01 16:20 | disposition home or self-care (01) ==
PROVIDERS: PCP Internal Medicine
DX: M65.4 Radial styloid tenosynovitis [de Quervain] (principal); M25.532 Pain in left wrist; M25.531 Pain in right wrist
CPT/HCPCS: 20550; 99203

== ENCOUNTER 2024-02-15 09:55 | Outpatient (AMB) | payer OTHER, SELFPAY ==
--- NOTE | 2024-02-15 09:59 | A.OFFVIS_ITS ---
Vital Signs 02/15/24 10:03 Height 5 ft 1 in Weight 154 lb BMI 29.1 Handedness Right Intake Visit Reasons: OV- L De Quervain injection Intake Note: Kim is a 28 year old right hand dominant female who presents today for a left De Quervain's injection. De Quervain tenosynovitis, right was injected on 02/01/24. Allergies sulfamethoxazole [From Sulfamethoxazole-Trimethoprim] Allergy (Severe, Verified 02/15/24 10:02) Anaphylaxis trimethoprim [From Sulfamethoxazole-Trimethoprim] Allergy (Severe, Verified 02/15/24 10:02) Anaphylaxis black pepper Allergy (Intermediate, Verified 02/15/24 10:02) throat swelling kiwi Allergy (Intermediate, Verified 02/15/24 10:02) throat swelling pineapple Allergy (Intermediate, Verified 02/15/24 10:02) throat swelling prednisone Adverse Reaction (Severe, Verified 02/15/24 10:02) Anaphylaxis wood Allergy (Intermediate, Uncoded 02/15/24 10:02) hives HPI HPI OV- L De Quervain injection: Details: Patient is a 28-year-old female who presents for left de Quervain tenosynovitis injection. Patient reports that she did get some relief with right-sided injection, although she does still experience some discomfort in the right wrist. No other acute complaints or concerns at this time. FORMERLY [facility], [facility] Medical History Pancreatic lesion History of colitis Immunization due Neck pain Seborrheic dermatitis of scalp Overweight (BMI 25.0-29.9) HSV infection Surgical History Hx of colonoscopy History of esophagogastroduodenoscopy (EGD) History of History of wisdom tooth extraction Family History (Updated 01/04/24 @ 16:33 by Yazmin Gallo MD) Mother Hypertension Father Hypertension Maternal Uncle Prostate cancer Social History Housing: House Alcohol intake: former Patient Tobacco Use Status: Former Tobacco user Tobacco use type: Cigarette e-Cigarette/Vaping Use: Never Used Second Hand Smoke Exposure: No service: No Current occupational status: employed Current occupational exposures/hazards: No Cognitive needs: No Hearing needs: No Vision needs: No Physical Exam Vital Signs: BMI result Body Mass Index 29.1 Extrem Other: Neuro: Normal sensation of the tips of all digits of bilateral hands in the office today. No thenar or intrinsic wasting. Good APB muscle firing and good finger cross. Vascular: Capillary refill brisk. Pain: Tenderness to palpation of bilateral radial styloid, worse on the left Positive Aurelia test bilaterally, worse on the left No tenderness to palpation of bilateral ulnar styloid, DRUJ, or elsewhere on bilateral hands or wrists ROM: Patient can make a fist and extend all their digits. Pain with resisted flexion and extension of bilateral wrists Skin: No lacerations or abrasions noted. General: No ecchymosis. No erythema or evidence of infection. Office Procedures AMB Tendon Injection Tendon Injection Details: Left de Quervain injection [id number] Tendon Sheath Injection All charges added?: Procedure code (CPT) selection complete Assessment & Plan Assessment & Plan (1) De Quervain's tenosynovitis, bilateral: Code(s): M65.4 - Radial styloid tenosynovitis [de Quervain] Category: Medical Plan 1. De Quervain tenosynovitis, left I educated the patient about this condition and the treatment options available Patient would like to proceed with steroid injection Injection #1: The risks and benefits of a steroid injection including but not limited to risk of damage to blood vessels, nerves, tendons, infection, skin bleaching, failure to improve symptoms, increased pain, and possible need for further injections or other intervention were discussed with the patient and the patient wishes to proceed with the steroid injection. Once consent was obtained, I sterilely prepped the area over the 1st dorsal compartment of the left thumb. I then injected the 1st dorsal compartment with a combination of 1 mL of dexamethasone (4mg/ml), and 1% lidocaine. The patient tolerated the procedure well with no complications and good resolution of their symptoms prior to leaving clinic. If the patient continues to have pain 6-8 weeks following this injection, they may call to schedule appointment to discuss alternative treatment options Coding Level of Care Code Est Pt Level 3 (73286) Diagnoses De Quervain's tenosynovitis, bilateral M65.4 CPT Codes Tendon Injection - Tendon Injection 1: [id number] Tendon Sheath Injection ([id number])
[2024-02-15 10:03] VITALS: BMI 29.1
== END 2024-02-15 10:17 | disposition home or self-care (01) ==
PROVIDERS: PCP Internal Medicine
DX: M65.4 Radial styloid tenosynovitis [de Quervain] (principal)
CPT/HCPCS: 20550; 99213

== ENCOUNTER → 2024-02-15 09:55 | Outpatient (BNVA) | payer OTHER, SELFPAY | PROVIDERS: PCP Internal Medicine | DX: M65.4 Radial styloid tenosynovitis [de Quervain] (principal) | CPT/HCPCS: 20550; 99212; J1100; J2003 ==

== ENCOUNTER 2024-03-03 15:32 | Outpatient (REF) | payer OTHER, SELFPAY ==
--- NOTE | 2024-03-03 15:35 | EMG_ITS ---
Chief complaint: Bilateral hand numbness Reason for referral: Evaluate for Carpal Tunnel Syndrome Referred by: Jad WILLS Procedure done: Bilateral upper extremities NCS Precautions and/or limitations: Apprehensive about the needle The limb temperature was monitored continuously and remained between 32-36 degrees C during the performance of the NCS. Nerve Conduction Studies Anti Sensory Summary Table ?Stim Site NR Onset (ms) Norm Onset (ms) Peak (ms) Norm Peak (ms) O-P Amp (?V) Norm O-P Amp Site1 Site2 Delta-0 (ms) Dist (cm) Mu (m/s) Norm Mu (m/s) Left Median Anti Sensory (2nd Digit) Wrist ? 2.7 3.6 <3.6 19.2 >10 Wrist 2nd Digit 2.7 14.0 52 Right Median Anti Sensory (2nd Digit) Wrist ? 2.6 3.4 <3.6 47.5 >10 Wrist 2nd Digit 2.6 14.0 54 Left Ulnar Anti Sensory (5th Digit) Wrist ? 2.1 2.7 <3.7 51.5 >15.0 Wrist 5th Digit 2.1 14.0 67 Right Ulnar Anti Sensory (5th Digit) Wrist ? 2.0 2.8 <3.7 31.2 >15.0 Wrist 5th Digit 2.0 14.0 70 Motor Summary Table ?Stim Site NR Onset (ms) Norm Onset (ms) O-P Amp (mV) Norm O-P Amp iAmp (mV) Amp (1st) (%) Site1 Site2 Delta-0 (ms) Dist (cm) Mu (m/s) Norm Mu (m/s) Left Median Motor (Abd Poll Brev) Wrist ? 3.3 <3.9 8.0 >4.5 9.5 100.0 Elbow Wrist 3.7 19.0 51 >45 Elbow ? 7.0 7.6 8.9 95.0 Right Median Motor (Abd Poll Brev) Wrist ? 3.3 <3.9 14.1 >4.5 18.0 100.0 Elbow Wrist 3.3 18.0 55 >45 Elbow ? 6.6 12.9 16.7 91.5 Left Ulnar Motor (Abd Dig Minimi) Wrist ? 2.2 <3.0 8.0 >5 8.9 100.0 B Elbow Wrist 2.8 17.0 61 >45 B Elbow ? 5.0 7.4 8.3 92.5 A Elbow B Elbow 1.3 10.0 77 >45 A Elbow ? 6.3 7.6 8.6 95.0 Right Ulnar Motor (Abd Dig Minimi) Wrist ? 2.2 <3.0 10.3 >5 11.4 100.0 B Elbow Wrist 2.9 18.0 62 >45 B Elbow ? 5.1 10.1 11.4 98.1 A Elbow B Elbow 1.1 10.0 91 >45 A Elbow ? 6.2 9.9 11.3 96.1 Comparison Summary Table ?Stim Site NR Peak (ms) Norm Peak (ms) P-T Amp (?V) Site1 Site2 Delta-P (ms) Norm Delta (ms) Right Median/Radial Dig I Comparison (Digit 1 - 10cm) Median ? 2.7 <2.9 81.9 Median Radial 0.2 Radial ? 2.5 <2.8 22.7 FINDINGS: All motor and sensory nerves tested showed normal latencies, amplitudes and conduction velocities. Concentric needle EMG was performed in selected muscles of the bilateral upper extremities. Study did not reveal signs of electric abnormalities as shown in the table above. IMPRESSION: 1. This is a normal study. 2. There is no electrodiagnostic evidence for median neuropathy or ulnar neuropathy. Thank you for your kind referral. Peace Padilla MD, ABDIEL Board Certified, [place] Board [employer] and [employer] (ABPMR) Board Certified, [place] Board of Electrodiagnostic Medicine (ABEM) CODIN 5 [phone] MTDD
== END 2024-03-03 15:33 | disposition home or self-care (01) ==
LOC: HO.NEURO 15:32
PROVIDERS: PCP Internal Medicine
DX: R20.0 Anesthesia of skin (principal); R20.2 Paresthesia of skin
CPT/HCPCS: 95911

== ENCOUNTER → 2024-03-03 15:35 | Outpatient (BNV) | payer OTHER, SELFPAY | PROVIDERS: PCP Internal Medicine; Visit Provider Physical Medicine & Rehabilitation | DX: R20.0 Anesthesia of skin (principal); R20.2 Paresthesia of skin | CPT/HCPCS: 95911 ==

== ENCOUNTER 2024-03-30 15:10 | Outpatient (AMB) | payer OTHER, SELFPAY ==
--- NOTE | 2024-03-30 15:33 | MHC.OFFVIS ---
Vital Signs 03/30/24 15:35 Height 5 ft 1 in Weight 154 lb BMI 29.1 Intake Visit Reasons: OV- B/L hands EMG review Intake Note: Kim is a 28 year old right hand dominant female who presents today for an EMG review. 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 Bilateral upper extremities- IMPRESSION: 1. This is a normal study. 2. There is no electrodiagnostic evidence for median neuropathy or ulnar neuropathy. Allergies sulfamethoxazole [From Sulfamethoxazole-Trimethoprim] Allergy (Severe, Verified 02/15/24 10:02) Anaphylaxis trimethoprim [From Sulfamethoxazole-Trimethoprim] Allergy (Severe, Verified 02/15/24 10:02) Anaphylaxis black pepper Allergy (Intermediate, Verified 02/15/24 10:02) throat swelling kiwi Allergy (Intermediate, Verified 02/15/24 10:02) throat swelling pineapple Allergy (Intermediate, Verified 02/15/24 10:02) throat swelling prednisone Adverse Reaction (Severe, Verified 02/15/24 10:02) Anaphylaxis wood Allergy (Intermediate, Uncoded 02/15/24 10:02) hives HPI HPI OV- B/L hands EMG review: Details: Kim is a 28 year old right hand dominant female who presents today for an EMG review. 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 Bilateral upper extremities- IMPRESSION: 1. This is a normal study. 2. There is no electrodiagnostic evidence for median neuropathy or ulnar neuropathy. [facility] Medical History Pancreatic lesion History of colitis Immunization due Neck pain Seborrheic dermatitis of scalp Overweight (BMI 25.0-29.9) HSV infection Surgical History Hx of colonoscopy History of esophagogastroduodenoscopy (EGD) History of History of wisdom tooth extraction Family History (Updated 01/04/24 @ 16:33 by Yazmin Gallo MD) Mother Hypertension Father Hypertension Maternal Uncle Prostate cancer Social History Housing: House Alcohol intake: former Patient Tobacco Use Status: Former Tobacco user Tobacco use type: Cigarette e-Cigarette/Vaping Use: Never Used Second Hand Smoke Exposure: No service: No Current occupational status: employed Current occupational exposures/hazards: No Cognitive needs: No Hearing needs: No Vision needs: No Review of Systems Const All systems reviewed & are unremarkable except as noted in HPI and below Physical Exam Vital Signs: BMI result Body Mass Index 29.1 Extrem Other: Neuro: Normal sensation of the tips of all digits of bilateral hands in the office today. No thenar or intrinsic wasting. Good APB muscle firing and good finger cross. Vascular: Capillary refill brisk. Pain: Tenderness to palpation of bilateral radial styloid, worse on the left Positive Aurelia test bilaterally, worse on the left No tenderness to palpation of bilateral ulnar styloid, DRUJ, or elsewhere on bilateral hands or wrists ROM: Patient can make a fist and extend all their digits. Pain with resisted flexion and extension of bilateral wrists Skin: No lacerations or abrasions noted. General: No ecchymosis. No erythema or evidence of infection. Assessment & Plan Assessment & Plan (1) Numbness and tingling in both hands: Code(s): R20.0 - Anesthesia of skin; R20.2 - Paresthesia of skin Category: Medical (2) De Quervain's tenosynovitis, bilateral: Code(s): M65.4 - Radial styloid tenosynovitis [de Quervain] Category: Medical Plan 1. Numbness and tingling of b/l hands Intermittent, daily, worse at night Patient is educated that there is no acute intervention indicated for her numbness and tingling as she had a negative EMG Patient expresses relied upon hearing this Patient is educated that if she experiences numbness 6 months from now, she can be referred for repeat EMG Patient is amenable to this Patient will follow up for scheduled appt for De Quervain's tenosynovitis, sooner with any acute concerns Coding Level of Care Code Est Pt Level 3 (40725) Diagnoses Numbness and tingling in both hands R20.0; R20.2 De Quervain's tenosynovitis, bilateral M65.4
[2024-03-30 15:35] VITALS: BMI 29.1
== END 2024-03-30 16:07 | disposition home or self-care (01) ==
PROVIDERS: PCP Internal Medicine
DX: R20.0 Anesthesia of skin (principal); R20.2 Paresthesia of skin; M65.4 Radial styloid tenosynovitis [de Quervain]
CPT/HCPCS: 99213

== ENCOUNTER → 2024-03-30 15:10 | Outpatient (BNVA) | payer OTHER, SELFPAY | PROVIDERS: PCP Internal Medicine | DX: M65.4 Radial styloid tenosynovitis [de Quervain] (principal); R20.0 Anesthesia of skin; R20.2 Paresthesia of skin | CPT/HCPCS: 99212 ==

== ENCOUNTER 2024-04-14 12:31 | Emergency (ER) | payer OTHER, SELFPAY ==
[2024-04-14 12:40] VITALS: BP 148/76; PULSE 110; O2SAT 97
[2024-04-14 12:43] VITALS: BP 130/70; PULSE 101; RESP 16; TEMP 37.1; O2SAT 100; BMI 31.4
[2024-04-14 12:47] VITALS: PULSE 100; RESP 16; O2SAT 100
--- NOTE | 2024-04-14 13:16 | ECG_ITS ---
Test Reason : ALLERGIC REACTION Blood Pressure : */* mmHG Vent. Rate : 97 BPM Atrial Rate : 97 BPM P-R Int : 138 ms QRS Dur : 86 ms QT Int : 362 ms P-R-T Axes : 36 22 18 degrees QTcB Int : 459 ms Normal sinus rhythm Normal ECG When compared with ECG of 27-Jun-2021 09:25, QT has lengthened Referred By: Holden Fernandez Electronically Signed By: Black Sawant
[2024-04-14] MEDS: Famotidine 20 MG TABLET PO (13:42)
--- NOTE | 2024-04-14 14:11 | ED.GENADULT ---
HPI - General Adult General Chief complaint: Allergic Reaction Stated complaint: ITCHY THROAT,GIVEN EPIPEN & BENEDRYL,ALLERGIC RXN Time Seen by Provider: 04/14/24 12:46 Source: patient, RN notes reviewed and old records reviewed Mode of arrival: ambulatory Limitations: no limitations History of Present Illness ED Provider: Jim CONTE narrative: 28-year-old female presents for evaluation ?allergic reaction. ? Patient has never seen an insurance collector but believes she has an allergy to black pepper. 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 Currently the patient denies any throat itching, facial swelling, shortness of breath but does complain of pain in her feet No other complaints or concerns at this time. She denies any chest pain Related Data Home Medications ?Medication ?Instructions ?Recorded ?Confirmed Nexplanon 05/29/22 01/04/24 acyclovir 400 mg tablet 400 mg PO DAILY 02/01/24 Previous Rx's ?Medication ?Instructions ?Recorded dicyclomine 10 mg capsule 10 mg PO QID #60 caps 05/18/23 epinephrine 0.3 mg/0.3 mL 0.3 mg (0.3 mL) IM ONCE #2 ea 08/10/23 injection, auto-injector valacyclovir 1 gram tablet 1,000 mg PO TID 7 days #21 tabs 03/23/24 epinephrine 0.3 mg/0.3 mL 0.3 mg (0.3 mL) IM Q30M PRN 04/14/24 injection, auto-injector anaphylaxis #2 ea Allergies Allergy/AdvReac Type Severity Reaction Status Date / Time sulfamethoxazole Allergy Severe Anaphylaxis Verified 04/14/24 12:47 [From Sulfamethoxazole-Trimethoprim] trimethoprim Allergy Severe Anaphylaxis Verified 04/14/24 12:47 [From Sulfamethoxazole-Trimethoprim] black pepper Allergy Intermediate throat Verified 04/14/24 12:47 swelling kiwi Allergy Intermediate throat Verified 04/14/24 12:47 swelling pineapple Allergy Intermediate throat Verified 04/14/24 12:47 swelling prednisone AdvReac Severe Anaphylaxis Verified 04/14/24 12:47 wood Allergy Intermediate hives Uncoded 02/15/24 10:02 Review of Systems Constitutional: Constitutional: Denies body ache(s), Denies chills, Denies fever(s) and Denies frequent falls Eyes: Eyes: Denies blurry vision ENT: Denies dysphagia and Denies vertigo Comments: Reports throat itching Cardiovascular: Cardiovascular: Denies chest pain and Denies dyspnea Respiratory: Respiratory: Denies cough and Denies dyspnea Gastrointestinal: Gastrointestinal: Denies dysphagia Musculoskeletal: Musculoskeletal: Denies back pain Integumentary/Breasts: Skin/Breast: Denies rash Neurologic: Denies vertigo and Denies frequent falls Psychiatric: Psychiatric: Denies anxiety PMFSH Past Medical History Medical History Pancreatic lesion History of colitis Immunization due Neck pain Seborrheic dermatitis of scalp Overweight (BMI 25.0-29.9) HSV infection Surgical History Hx of colonoscopy History of esophagogastroduodenoscopy (EGD) History of History of wisdom tooth extraction Family History Family History (Updated 01/04/24 @ 16:33 by Yazmin Gallo MD) Mother Hypertension Father Hypertension Maternal Uncle Prostate cancer Social History Social History Housing: House Alcohol intake: former Patient Tobacco Use Status: Former Tobacco user Tobacco use type: Cigarette Smoked in Last 30 Days: No e-Cigarette/Vaping Use: Never Used Second Hand Smoke Exposure: No Use of substances other than those prescribed or required for medical reasons: No Advance Directives: No Advance Directives Information Provided: Yes Patient : No service: No Current occupational status: employed Current occupational exposures/hazards: No Cognitive needs: No Hearing needs: No Vision needs: No Physical Exam ED Vital Signs: Vital Signs - 24 hr 04/14/24 12:43 04/14/24 12:47 Temperature 98.8 F Pulse Rate 101 H 100 Respiratory Rate 16 16 Blood Pressure 130/70 Pulse Oximetry 100 100 Oxygen Delivery Method Room Air Room Air BMI result Body Mass Index 31.4 Const General: healthy appearing, comfortable, no acute distress, alert and awake Nutritional Appearance: well nourished Orientation/consciousness: patient oriented x3 HENMT Other: No oral, perioral, or retropharyngeal edema. No anterior neck edema. Head: Yes normocephalic and Yes atraumatic Throat: Yes posterior oropharynx normal Eyes Eyelids: Yes eyelids normal Conjunctivae: conjunctivae normal Sclerae: sclerae normal Corneas: corneas normal Pupils: Equal, round and reactive pupils present EOM: EOMs intact bilaterally Neck Neck: Yes full ROM Resp Effort & Inspection: normal respiratory effort, able to speak in complete sentences, no audible wheezes and not labored Auscultation: clear to auscultation bilaterally GI Inspection: No distended Palpation (GI): Soft to palpation, not firm, nontender, no guarding and not rigid Skin Other: Warm, dry, well perfused. General skin exam: elasticity normal Neuro General: patient oriented x3 Cranial nerves: Yes Equal, round and reactive pupils present and Yes Bilaterally intact EOM present Cognition (Neuro): normal cognition Extrem Other: Moving all extremities well without any obvious deformities. DP and PT pulses 2+ and equal. Course Reevaluation(s) Reevaluation #1: Patient's physical exam remains unchanged. She has had no edema, no further itching or rashes. The patient will be discharged, I will refill her EpiPen. She was encouraged take Benadryl tonight and follow up with an insurance collector Time: 15:05 Medications Administered Discontinued Medications Generic Name Dose Route Start Last Admin Trade Name Freq PRN Reason Stop Dose Admin Famotidine 20 mg 04/14/24 13:16 04/14/24 13:42 Famotidine 20 Mg Tablet PO 04/14/24 13:17 20 mg ONCE ONE Administration Medical Decision Making Medical Decision Making [facility] Narrative: 20-year-old female presents for evaluation of itchiness in her throat. She has no objective findings of allergic reaction while in the ER but she had received 2 doses of EpiPen as well as Benadryl 50 mg orally. She reports an anaphylactic allergy to prednisone. I added famotidine and plan to observe. Given that she has no objective findings, appears well and has stable vital signs, I feel is appropriate to hold steroids of the moment. I did order an EKG given the patient was given 2 doses of epinephrine but this shows no evidence of ischemia in the patient denies chest pain. Differential Diagnosis Differential Diagnoses: The differential diagnosis associated with the presentation includes Allergic reaction Anaphylaxis Urticaria Pharyngitis Independent Interpretation I performed an independent interpretation of an: EKG Interpretation: Sinus rhythm with a rate of 97 beats minute. Discharge Plan Discharge Clinical Impression: Allergic reaction Patient Disposition: Home, Self-Care Instructions: General Allergic Reaction (ED) Additional Instructions: I recommend that you take Benadryl 50 mg around 5:00 p.m. tonight. Use your EpiPen as needed, I did send a refill prescription to your pharmacy. Follow-up with your primary doctor, return for new or worsening symptoms. You may benefit from being evaluated by an insurance collector Prescriptions: New epinephrine 0.3 mg/0.3 mL auto-injector 0.3 mg IM Q30M PRN (Reason: anaphylaxis) Qty: 2 0RF Rx Instructions: do not exceed 12 doses per 24 hrs No Action epinephrine 0.3 mg/0.3 mL auto-injector 0.3 mg IM ONCE Qty: 2 0RF valacyclovir 1 gram tablet 1,000 mg PO TID 7 Days Qty: 21 3RF Nexplanon dicyclomine 10 mg capsule 10 mg PO QID Qty: 60 0RF acyclovir 400 mg tablet 400 mg PO DAILY Print Language: American
[2024-04-14 15:09] VITALS: BP 112/62; PULSE 81; RESP 16; TEMP 36.8; O2SAT 99
[2024-04-14 15:19] VITALS: BP 112/62; PULSE 81; RESP 16; TEMP 36.8; O2SAT 99
== END 2024-04-14 15:21 | disposition home or self-care (01) ==
PROVIDERS: Emergency Provider Emergency Medicine; PCP Internal Medicine
DX: T78.40XA Allergy, unspecified, initial encounter (principal); R21 Rash and other nonspecific skin eruption; X58.XXXA Exposure to other specified factors, initial encounter
CPT/HCPCS: 93005; 99283; 99284

== ENCOUNTER → 2024-04-14 13:16 | Outpatient (BNV) | payer OTHER, SELFPAY | PROVIDERS: Emergency Provider Emergency Medicine; PCP Internal Medicine; Visit Provider Internal Medicine Cardiovascular Disease | DX: R06.02 Shortness of breath (principal) | CPT/HCPCS: 93010 ==

== ENCOUNTER 2024-04-15 09:04 | Outpatient (AMB) | payer OTHER, SELFPAY ==
--- NOTE | 2024-04-15 09:32 | AM.OFFWIN_ITS ---
Intake Vital Signs 04/15/24 09:33 Weight 152 lb BP 122/80 Blood Pressure Location Rt brachial Position Sitting Pulse 88 Pulse Source Pulse Oximeter Temp 98.3 F Temp Source Oral Pulse Oximetry (%) 98 Oxygen Delivery Method Room Air Intake Visit Reasons: EP-itchy body, dry throat Intake Note: Patient here for allergic reaction, itching,dry throat/tingling that started yesterday. Patient Tobacco Use Status: Former Tobacco user Allergies sulfamethoxazole [From Sulfamethoxazole-Trimethoprim] Allergy (Severe, Verified 04/15/24 09:41) Anaphylaxis trimethoprim [From Sulfamethoxazole-Trimethoprim] Allergy (Severe, Verified 04/15/24 09:41) Anaphylaxis black pepper Allergy (Intermediate, Verified 04/15/24 09:41) throat swelling kiwi Allergy (Intermediate, Verified 04/15/24 09:41) throat swelling pineapple Allergy (Intermediate, Verified 04/15/24 09:41) throat swelling prednisone Adverse Reaction (Severe, Verified 04/15/24 09:41) Anaphylaxis wood Allergy (Intermediate, Uncoded 04/15/24 09:41) hives Do you need a note to return to daycare/school/sports/work: Yes HPI HPI Comments History of Present Illness Details This is a 28-year-old female who presented to the walk-in clinic April complaining of an itchy/scratchy throat. 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 She developed pruritus body and a rash to her right abdomen as well as an itchy throat so she administered an EpiPen and took p.o. diphenhydramine 50 mg. Her symptoms persisted so 911 was called she was given another EpiPen via EMS. Patient was evaluated in the emergency room and she was given famotidine. Patient's symptoms had completely resolved and she did not have any evidence of anaphylaxis or further allergic reactions so she was discharged home with instructions to continue diphenhydramine. Patient has an anaphylactic allergy to prednisone so she is unable to receive steroids. Patient presented to the walk-in clinic today as she continued to have an itchy/scratchy throat. She denies any rash, chest tightness, wheezing, difficulty breathing, or throat swelling/difficulty swallowing. She denies sore throat. She denies any fever/chills. She states she took another dose of diphenhydramine around 5:00 p.m. last night but otherwise has not received any further treatment. [facility] Medical History Pancreatic lesion History of colitis Immunization due Neck pain Seborrheic dermatitis of scalp Overweight (BMI 25.0-29.9) HSV infection Surgical History Hx of colonoscopy History of esophagogastroduodenoscopy (EGD) History of History of wisdom tooth extraction Family History (Updated 01/04/24 @ 16:33 by Yazmin Gallo MD) Mother Hypertension Father Hypertension Maternal Uncle Prostate cancer Social History Housing: House Alcohol intake: former Patient Tobacco Use Status: Former Tobacco user Tobacco use type: Cigarette e-Cigarette/Vaping Use: Never Used Second Hand Smoke Exposure: No service: No Current occupational status: employed Current occupational exposures/hazards: No Cognitive needs: No Hearing needs: No Vision needs: No Review of Systems Const All systems reviewed & are unremarkable except as noted in HPI and below Reports no additional complaints Eyes Reports no additional complaints ENT Reports no additional complaints Card Reports no additional complaints Resp Reports no additional complaints GI Reports no additional complaints Reports no additional complaints Musc Reports no additional complaints Skin/Breast Reports system reviewed and no additional complaints, except as documented Neuro Reports no additional complaints Psych Reports no additional complaints Endo Reports no additional complaints Rober/Lymph Reports no additional complaints Aller/Immun Reports no additional complaints Physical Exam Vital Signs: Last Vital Signs Temp 98.3 F 04/15/24 09:33 Pulse 88 04/15/24 09:33 BP 122/80 04/15/24 09:33 Pulse Ox 98 04/15/24 09:33 Oxygen Delivery Method Room Air 04/15/24 09:33 Const Other: Vital signs reviewed. Constitutional: Non-toxic appearing. No acute distress. Well-developed and well-nourished. HEENT: Normocephalic and atraumatic. Tympanic membranes without erythema, edema, or bulging bilaterally. External auditory canals without erythema or edema bilaterally. Moist mucous membranes. No pharyngeal erythema or exudates. Her airway is patent. There is no pharyngeal edema. She has no stridor, tripoding, or muffled voice. Skin: Warm and dry. No rashes or lesions noted. Neck: Full and painless range of motion. No cervical lymphadenopathy. Cardio: Regular rate and rhythm. No murmurs, gallops, or rubs. No lower extremity edema. No JVD. Pulmonary: No respiratory distress. No accessory muscle usage. Clear to auscultation bilaterally without wheezing, crackles, or rhonchi. Gastrointestinal: Soft, nontender, and nondistended in all 4 quadrants. Musculoskeletal: Normal range of motion in joints throughout the body. No deformity or other signs of injury. Neuro: Alert and oriented x4. Cranial nerves 2-12 grossly intact. No focal deficits appreciated. Psych: Normal mood and affect. Office Meds diphenhydramine HCl 25 mg tablet Performing Provider: ELMA Pate [place] [facility] [place] Administered by: ELMA Pate on 04/15/24 10:11 Dose Route Admin Location Dispensed Lot Number Expiration Date [employer] 25 mg PO 1 tab [id number] 08/16/26 0027-9659-66 Assessment & Plan Assessment & Plan (1) Allergic reaction: Code(s): T78.40XA - Allergy, unspecified, initial encounter Qualifiers: Encounter type: subsequent encounter Qualified Code(s): T78.40XD - Allergy, unspecified, subsequent encounter Plan: This is a 28-year-old female who presented to the walk-in clinic complaining of persistent itchy/scratchy throat following exposure to an allergen yesterday. Patient received EpiPen x2 as well as p.o. diphenhydramine x2 and famotidine in the emergency room. She was eventually discharged home as she had no evidence of anaphylaxis and she was hemodynamically stable. Patient unfortunately has not anaphylactic reaction to prednisone so she is unable to receive steroids. On today's physical examination, she has no evidence of anaphylaxis without any wheezing/stridor in her airway is patent. She has no pharyngeal edema or rashes. She was given a dose of p.o. diphenhydramine 25 mg x 1 dose in the office today. She was given a prescription for p.o. hydroxyzine 25 mg 3 times daily as needed for pruritus. She was instructed to reach out to her primary care physician for an wastewater manager referral and I also sent a message to her primary care physician with my recommendations for wastewater manager referral. Patient has EpiPen available if her symptoms worsen. She was advised to proceed directly to the emergency room if she were to develop any throat swelling, trouble swallowing, wheezing, chest tightness, or difficulty breathing. Patient verbalized her understanding and she is in agreement with the plan. Orders: Orders AMB Diphenhydramine Adult Dose Today T78.40XA - Allergy, unspecified, initial encounter Medications: New hydroxyzine HCl 25 mg PO TID PRN 14 tabs 0RF itching Coding Level of Care Code Est Pt Level 3 (36539) Diagnoses Allergic reaction, subsequent encounter T78.40XD Encounter type: subsequent encounter
[2024-04-15 09:33] VITALS: BP 122/80; PULSE 88; TEMP 36.8; O2SAT 98
== END 2024-04-15 10:35 | disposition home or self-care (01) ==
PROVIDERS: PCP Internal Medicine; Visit Provider Physician Assistant Medical
DX: T78.40XA Allergy, unspecified, initial encounter (principal); T78.40XD Allergy, unspecified, subsequent encounter

== ENCOUNTER → 2024-04-15 09:04 | Outpatient (BNVA) | payer OTHER, SELFPAY | PROVIDERS: PCP Internal Medicine | DX: T78.40XA Allergy, unspecified, initial encounter (principal) | CPT/HCPCS: 99212 ==

== ENCOUNTER 2024-05-03 15:26 | Outpatient (AMB) | payer OTHER, SELFPAY ==
--- NOTE | 2024-05-03 15:43 | A.OFFVIS_ITS ---
Vital Signs 05/03/24 15:44 Weight 152 lb Handedness Right Intake Visit Reasons: OV-B/L hands de quervain's injection Intake Note: Kim is a 29 year old right hand dominant female who presents today for follow up visit of her bilateral De Quervain's tenosynovitis. Patient received a left De Quervain's injection on 02/14/25. Patient would like both hands injected today since her last injection gave her a couple weeks of relief. Allergies sulfamethoxazole [From Sulfamethoxazole-Trimethoprim] Allergy (Severe, Verified 04/15/24 09:41) Anaphylaxis trimethoprim [From Sulfamethoxazole-Trimethoprim] Allergy (Severe, Verified 04/15/24 09:41) Anaphylaxis black pepper Allergy (Intermediate, Verified 04/15/24 09:41) throat swelling kiwi Allergy (Intermediate, Verified 04/15/24 09:41) throat swelling pineapple Allergy (Intermediate, Verified 04/15/24 09:41) throat swelling prednisone Adverse Reaction (Severe, Verified 04/15/24 09:41) Anaphylaxis wood Allergy (Intermediate, Uncoded 04/15/24 09:41) hives HPI HPI OV-B/L hands de quervain's injection: Details: Kim is a 29 year old right hand dominant female who presents today for follow up visit of her bilateral De Quervain's tenosynovitis. Patient received a left De Quervain's injection on 02/14/25. Patient would like both hands injected today since her last injection gave her a couple weeks of relief. [facility] Medical History Pancreatic lesion History of colitis Immunization due Neck pain Seborrheic dermatitis of scalp Overweight (BMI 25.0-29.9) HSV infection Surgical History Hx of colonoscopy History of esophagogastroduodenoscopy (EGD) History of History of wisdom tooth extraction Family History (Updated 01/04/24 @ 16:33 by Yazmin Gallo MD) Mother Hypertension Father Hypertension Maternal Uncle Prostate cancer Social History Housing: House Alcohol intake: former Patient Tobacco Use Status: Former Tobacco user Tobacco use type: Cigarette e-Cigarette/Vaping Use: Never Used Second Hand Smoke Exposure: No service: No Current occupational status: employed Current occupational exposures/hazards: No Cognitive needs: No Hearing needs: No Vision needs: No Review of Systems Const All systems reviewed & are unremarkable except as noted in HPI and below Physical Exam Extrem Other: Neuro: Normal sensation of the tips of all digits of bilateral hands in the office today. No thenar or intrinsic wasting. Good APB muscle firing and good finger cross. Vascular: Capillary refill brisk. Pain: Tenderness to palpation of bilateral radial styloid, worse on the left Positive Aurelia test bilaterally, worse on the left No tenderness to palpation of bilateral ulnar styloid, DRUJ, or elsewhere on bilateral hands or wrists ROM: Patient can make a fist and extend all their digits. Pain with resisted flexion and extension of bilateral wrists Skin: No lacerations or abrasions noted. General: No ecchymosis. No erythema or evidence of infection. Office Procedures AMB Tendon Injection Tendon Injection 15161-Ielgon Tendon Sheath Injection All charges added?: Procedure code (CPT) selection complete AMB Tendon Injection Tendon Injection [id number]-[id number] Tendon Sheath Injection All charges added?: Procedure code (CPT) selection complete Assessment & Plan Assessment & Plan (1) De Quervain's tenosynovitis, bilateral: Code(s): M65.4 - Radial styloid tenosynovitis [de Quervain] Category: Medical Plan 1. De Quervain tenosynovitis, left I educated the patient about this condition and the treatment options available Patient would like to proceed with steroid injection Injection #1: The risks and benefits of a steroid injection including but not limited to risk of damage to blood vessels, nerves, tendons, infection, skin bleaching, failure to improve symptoms, increased pain, and possible need for further injections or other intervention were discussed with the patient and the patient wishes to proceed with the steroid injection. Once consent was obtained, I sterilely prepped the area over the 1st dorsal compartment of the left thumb. I then injected the 1st dorsal compartment with a combination of 1 mL of dexamethasone (4mg/ml), and 1% lidocaine. The patient tolerated the procedure well with no complications and good resolution of their symptoms prior to leaving clinic. If the patient continues to have pain 6-8 weeks following this injection, they may call to schedule appointment to discuss alternative treatment options 2. De Quervain tenosynovitis, right I educated the patient about this condition and the treatment options available Patient would like to proceed with steroid injection Injection #2: The risks and benefits of a steroid injection including but not limited to risk of damage to blood vessels, nerves, tendons, infection, skin bleaching, failure to improve symptoms, increased pain, and possible need for further injections or other intervention were discussed with the patient and the patient wishes to proceed with the steroid injection. Once consent was obtained, I sterilely prepped the area over the 1st dorsal compartment of the left thumb. I then injected the 1st dorsal compartment with a combination of 1 mL of dexamethasone (4mg/ml), and 1% lidocaine. The patient tolerated the procedure well with no complications and good resolution of their symptoms prior to leaving clinic. If the patient continues to have pain 6-8 weeks following this injection, they may call to schedule appointment to discuss alternative treatment options Coding Level of Care Code Est Pt Level 3 (16216) Diagnoses De Quervain's tenosynovitis, bilateral M65.4 CPT Codes Tendon Injection - Tendon Injection 1: 07834-Qahgbx Tendon Sheath Injection ([id number]) Tendon Injection - Tendon Injection 1: 87675-Cpvqqe Tendon Sheath Injection ([id number])
== END 2024-05-03 15:53 | disposition home or self-care (01) ==
LOC: HO.HOS 15:27
PROVIDERS: PCP Internal Medicine
DX: M65.4 Radial styloid tenosynovitis [de Quervain] (principal)
CPT/HCPCS: 20550; 99213

== ENCOUNTER → 2024-05-03 15:26 | Outpatient (BNVA) | payer OTHER, SELFPAY | PROVIDERS: PCP Internal Medicine | DX: M65.4 Radial styloid tenosynovitis [de Quervain] (principal) | CPT/HCPCS: 20550; 99212; J1100; J2003 ==

== ENCOUNTER 2024-08-23 15:54 | Outpatient (AMB) | payer OTHER, SELFPAY ==
--- NOTE | 2024-08-23 15:58 | A.OFFPC_ITS ---
Vital Signs 08/23/24 15:59 Height 5 ft 1 in Weight 157 lb BMI 29.7 BP 128/82 Blood Pressure Location Lt brachial Position Sitting Intake Visit Reasons: follow up Obiee [employer] Solution Architect Required: No Accompanied by: Child Allergies sulfamethoxazole (From Sulfamethoxazole-Trimethoprim) Allergy (Severe, Verified 08/23/24 16:11) Anaphylaxis trimethoprim (From Sulfamethoxazole-Trimethoprim) Allergy (Severe, Verified 08/23/24 16:11) Anaphylaxis black pepper Allergy (Intermediate, Verified 08/23/24 16:11) throat swelling kiwi Allergy (Intermediate, Verified 08/23/24 16:11) throat swelling pineapple Allergy (Intermediate, Verified 08/23/24 16:11) throat swelling prednisone Adverse Reaction (Severe, Verified 08/23/24 16:11) Anaphylaxis wood Allergy (Intermediate, Uncoded 08/23/24 16:11) hives Medication List - Last Reconciled 08/23/24 by Yazmin Gallo MD acyclovir 400 mg PO DAILY dicyclomine 10 mg PO QID epinephrine 0.3 mg (0.3 mL) IM Q30M PRN hydroxyzine HCl 25 mg PO TID PRN [Nexplanon ] valacyclovir 1,000 mg PO TID 7 days Tobacco use date assessed: 08/23/24 Dental Screening Dental Screen Date: 08/23/24 Did you have a dental visit in the last 12 months?: Yes Did you have a dental problem in the last 6 months where you did not have access to dental care?: No Was dental information given to patient?: Patient has dentist HPI HPI Comments History of Present Illness Details The patient is a 29-year-old female presenting with concerns regarding allergies and previous anaphylactic reactions. 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 Additionally, she reports allergies to black pepper, kiwi, pineapple, prednisone, and wood, which have led to previous emergency room visits. The patient has been referred to multiple allergists, including [facility] and [facility], but has faced challenges with insurance coverage and scheduling appointments. She has managed to secure an appointment with [facility] after previous difficulties in communication. The patient denies smoking and alcohol consumption, indicating a lifestyle free from these substances. [facility] Medical History Pancreatic lesion History of colitis Immunization due Neck pain Seborrheic dermatitis of scalp Overweight (BMI 25.0-29.9) HSV infection Surgical History Hx of colonoscopy History of esophagogastroduodenoscopy (EGD) History of History of wisdom tooth extraction Family History Mother Hypertension Father Hypertension Maternal Uncle Prostate cancer Social History Housing: House Alcohol intake: former Patient Tobacco Use Status: Former Tobacco user Tobacco use type: Cigarette e-Cigarette/Vaping Use: Never Used Second Hand Smoke Exposure: No service: No Current occupational status: employed Current occupational exposures/hazards: No Cognitive needs: No Hearing needs: No Vision needs: No Questionnaire PHQ-9 Over the last 2 weeks, how often have you been bothered by any of the following problems? 1. Little interest or pleasure in doing things: not at all 2. Feeling down, depressed, or hopeless: more than half the days 3. Trouble falling or staying asleep, or sleeping too much: not at all 4. Feeling tired or having little energy: nearly every day 5. Poor appetite or overeating: not at all 6. Feeling bad about yourself - or that you are a failure or have let yourself or your family down: more than half the days 7. Trouble concentrating on things, such as reading the newspaper or watching television: not at all 8. Moving or speaking so slowly that other people could have noticed. Or the opposite - being so fidgety or restless that you have been moving around a lot more than usual: not at all 9. Thoughts that you would be better off or of hurting yourself in some way: not at all Total score: 7 Depression Screening Interpretation: Positive Depression Screening Follow-up: Existing condition and Follow-up Visit Requested Depression Screening Done: Yes 84079 - PHQ-9 Billing: Yes Source: Developed by Drs. Brian Marin, Loretta Hicks, Hany Harrington and colleagues, with an educational maricarmen from [employer]. Thrive Questionnaire Date Thrive assessed: 08/23/24 I am a: Patient What is your living situation today?: I have a steady place to live Within the past 12 months, did the food you bought not last and you didn't have the money to get more?: Never true Within the past 12 months, did you worry whether your food would run out before you got money to buy more?: Never true Do you have trouble paying for medicines?: No Do you have trouble getting transportation to medical appointments?: No Do you have trouble paying your heating and electricity bill?: No Do you have trouble taking care of your child, family member or friend?: No Do you have trouble with day-to-day activities such as bathing, preparing meals, shopping, managing finances, etc.?: No Are you currently unemployed and looking for a job?: No Are you interested in more education?: No Please select the resources that you would like help with: None Currently or been in a relationship where the following occur: No concerns reported THRIVE Score: 0 AUDIT C Alcohol Use Questionnaire (AUDIT-C) 1. How often do you have a drink containing alcohol?: Never Total Score: 0 Score Reviewed/Action Taken: No MADIHA-7 AMB Questionnaire MADIHA-7 Date MADIHA - 7 assessed: 08/23/24 Feeling nervous, anxious, or on edge: 1 = Several days Not being able to stop or control worryin = Several days Worrying too much about different things: 2 = More than half the days Trouble relaxin = Nearly every day Being so restless that it is hard to sit still: 3 = Nearly every day Becoming easily annoyed or irritable: 1 = Several days Feeling afraid as if something awful might happen: 1 = Several days Total MADIHA-7 score (0-4 normal; 5-9 mild; 10-14 moderate; 15-21 severe): 12 Source: Developed by Drs. Brian Marin, Loretta Hicks, Hany Harrington and colleagues, with an educational maricarmen from [employer]. MADIHA-7 Assessment Billing MADIHA-7 Assessment Tool: MADIHA-7 Assessment 65250 Review of Systems Const All systems reviewed & are unremarkable except as noted in HPI and below Card Denies chest pain at rest, Denies chest pain with activity, Denies edema, Denies irregular heart rhythm, Denies claudication, Denies dyspnea, Denies dyspnea on exertion, Denies orthopnea, Denies paroxysmal nocturnal dyspnea and Denies slow heart rate Resp Denies cough, Denies dyspnea and Denies dyspnea on exertion GI Denies abdominal pain, Denies change in bowel habits, Denies excessive flatus, Denies nausea and Denies vomiting Denies urinary incontinence, Denies urinary hesitancy and Denies urinary urgency Physical exam (Primary Care) Vital Signs: Last Vital Signs BP 128/82 08/23/24 15:59 BMI result Body Mass Index 29.7 Tobacco/Smoking Status: Tobacco use Status Tobacco use date assessed 08/23/24 08/23/24 16:04 Patient Tobacco Use Status Former Tobacco user 08/23/24 16:04 Tobacco use type Cigarette 08/23/24 16:04 e-Cigarette/Vaping Use Never Used 08/23/24 16:04 PHQ-9: PHQ-9 Score PHQ-9: Total score 7 08/23/24 16:13 Depression Screening Interpretation: Positive Depression Screening Follow-up: Existing condition and Follow-up Visit Requested Thrive Assessment: Date of Thrive Assessment Date Thrive assessed 08/23/24 08/23/24 16:04 Currently or been in a relationship where the following occur: No concerns reported Resp Effort & Inspection: normal respiratory effort Auscultation: clear to auscultation bilaterally Cardio Jugular venous distension: no JVD Rate: regular rate Rhythm: regular rhythm Heart sounds: S1 normal heart sound present and S2 normal heart sound present Extrem General: Yes full ROM Coding Level of Care Code Est Pt Level 3 (31747) Complex EM visit Add On G2211 Diagnoses Multiple allergies Z88.9 Additional Codes MADIHA-7 Assessment Billing - MADIHA-7 Assessment Tool: MADIHA-7 Assessment 42110 ([id number]) PHQ-9 - 57664 - PHQ-9 Billing: Yes ([id number]) Time Spent (min) 19 Assessment & Plan Assessment & Plan (1) Multiple allergies: Code(s): Z88.9 - Allergy status to unspecified drugs, medicaments and biological substances Category: Medical Plan The patient will be referred to another service order clerk due to insurance issues with previous referrals. She is advised to avoid known allergens, particularly black pepper, due to its common presence in foods. The patient is encouraged to maintain communication with [facility] for her upcoming appointment. Patient was informed and verbally consented to the use of an ambient scribe for clinic note documentation during this visit. Orders: Referrals Allergy & Immunology Referral T78.2XXD - Anaphylactic shock, unspecified, subsequent encounter, Z88.9 - Allergy status to unspecified drugs, medicaments and biological substances
[2024-08-23 15:59] VITALS: BP 128/82; BMI 29.7
== END 2024-08-23 16:20 | disposition home or self-care (01) ==
LOC: HO.HMCH 15:55
PROVIDERS: PCP Internal Medicine; Visit Provider Internal Medicine
DX: Z88.9 Allergy status to unspecified drugs, medicaments and biological substances (principal)

== ENCOUNTER → 2024-08-23 15:54 | Outpatient (BNVA) | payer OTHER, SELFPAY | PROVIDERS: PCP Internal Medicine; Visit Provider Internal Medicine | DX: Z88.9 Allergy status to unspecified drugs, medicaments and biological substances (principal) | CPT/HCPCS: 96127; 99212 ==

== ENCOUNTER 2025-01-09 16:45 | Outpatient (AMB) | payer OTHER, SELFPAY ==
[2025-01-09 17:06] VITALS: BP 110/66; PULSE 77; RESP 18; O2SAT 99; BMI 30.5
--- NOTE | 2025-01-09 17:06 | A.OFFPC_ITS ---
Vital Signs 01/09/25 17:06 Height 5 ft 1 in Weight 161 lb 8 oz BMI 30.5 BP 110/66 Blood Pressure Location Rt brachial Position Sitting Respiration 18 Pulse 77 Pulse Source Pulse Oximeter Temp Source Temporal Artery Scan Pulse Oximetry (%) 99 Oxygen Delivery Method Room Air Intake Visit Reasons: annual exam Psychologist [employer] Required: No Accompanied by: Self / Same As Patient Allergies sulfamethoxazole (From Sulfamethoxazole-Trimethoprim) Allergy (Severe, Verified 01/09/25 17:20) Anaphylaxis trimethoprim (From Sulfamethoxazole-Trimethoprim) Allergy (Severe, Verified 01/09/25 17:20) Anaphylaxis black pepper Allergy (Intermediate, Verified 01/09/25 17:20) throat swelling kiwi Allergy (Intermediate, Verified 01/09/25 17:20) throat swelling pineapple Allergy (Intermediate, Verified 01/09/25 17:20) throat swelling prednisone Adverse Reaction (Severe, Verified 01/09/25 17:20) Anaphylaxis wood Allergy (Intermediate, Uncoded 01/09/25 17:20) hives Medication List - Last Reconciled 01/09/25 by Yazmin Gallo MD acyclovir 400 mg PO DAILY dicyclomine 10 mg PO QID epinephrine 0.3 mg (0.3 mL) IM Q30M PRN hydroxyzine HCl 25 mg PO TID PRN [Nexplanon ] valacyclovir 1,000 mg PO TID 7 days Tobacco use date assessed: 01/09/25 Dental Screening Dental Screen Date: 01/09/25 Did you have a dental visit in the last 12 months?: Yes Did you have a dental problem in the last 6 months where you did not have access to dental care?: No Was dental information given to patient?: Patient has dentist HPI HPI Comments History of Present Illness Details The patient is a 29 year old individual presenting for physical exam. Complains of allergies and would like cardiology referral. Also complains of neck pain associated with bilateral arm numbness. Nerve conduction study was done 2021 but it was negative. The patient has a history of multiple allergies, including to sulfa, black pepper, kiwi, pineapple, prednisone, and wood. The patient has had difficulties obtaining an appointment with an dry yard worker despite three prior referrals, with a suspicion that this may be related to an insurance issue. The patient also reports a skin condition on the hands, described as seborrhea. Past surgical history is significant for an endoscopy, colonoscopy, section, and wisdom tooth extraction. The patient was hospitalized on two [facility] occasions in 2021. Family history is notable for both parents having high blood pressure. The patient denies smoking or alcohol use. [facility] Medical History (Updated 01/09/25 @ 17:29 by Yazmin Gallo MD) Pancreatic lesion History of colitis Immunization due Neck pain Seborrheic dermatitis of scalp Overweight (BMI 25.0-29.9) HSV infection Surgical History Hx of colonoscopy History of esophagogastroduodenoscopy (EGD) History of History of wisdom tooth extraction Family History Mother Hypertension Father Hypertension Maternal Uncle Prostate cancer Social History Housing: House Alcohol intake: former Patient Tobacco Use Status: Former Tobacco user Tobacco use type: Cigarette e-Cigarette/Vaping Use: Never Used Second Hand Smoke Exposure: No service: No Current occupational status: employed Current occupational exposures/hazards: No Cognitive needs: No Hearing needs: No Vision needs: No Questionnaire PHQ-9 Over the last 2 weeks, how often have you been bothered by any of the following problems? 1. Little interest or pleasure in doing things: not at all 2. Feeling down, depressed, or hopeless: more than half the days 3. Trouble falling or staying asleep, or sleeping too much: not at all 4. Feeling tired or having little energy: nearly every day 5. Poor appetite or overeating: not at all 6. Feeling bad about yourself - or that you are a failure or have let yourself or your family down: more than half the days 7. Trouble concentrating on things, such as reading the newspaper or watching television: not at all 8. Moving or speaking so slowly that other people could have noticed. Or the opposite - being so fidgety or restless that you have been moving around a lot more than usual: not at all 9. Thoughts that you would be better off or of hurting yourself in some way: not at all Total score: 7 Depression Screening Interpretation: Positive Depression Screening Follow-up: Existing condition and Follow-up Visit Requested Depression Screening Done: Yes 61400 - PHQ-9 Billing: Yes Source: Developed by Drs. Brian Marin, Loretta Hicks, Hany Harrington and colleagues, with an educational maricarmen from [employer]. Thrive Questionnaire Date Thrive assessed: 01/09/25 I am a: Patient What is your living situation today?: I have a steady place to live Within the past 12 months, did the food you bought not last and you didn't have the money to get more?: Never true Within the past 12 months, did you worry whether your food would run out before you got money to buy more?: Never true Do you have trouble paying for medicines?: No Do you have trouble getting transportation to medical appointments?: No Do you have trouble paying your heating and electricity bill?: No Do you have trouble taking care of your child, family member or friend?: No Do you have trouble with day-to-day activities such as bathing, preparing meals, shopping, managing finances, etc.?: No Are you currently unemployed and looking for a job?: No Are you interested in more education?: No Please select the resources that you would like help with: None Currently or been in a relationship where the following occur: No concerns repor rosalia THRIVE Score: 0 AUDIT C Alcohol Use Questionnaire (AUDIT-C) 1. How often do you have a drink containing alcohol?: Never Total Score: 0 Score Reviewed/Action Taken: No MADIHA-7 AMB Questionnaire MADIHA-7 Date MADIHA - 7 assessed: 08/23/24 Feeling nervous, anxious, or on edge: 1 = Several days Not being able to stop or control worryin = Several days Worrying too much about different things: 2 = More than half the days Trouble relaxin = Nearly every day Being so restless that it is hard to sit still: 3 = Nearly every day Becoming easily annoyed or irritable: 1 = Several days Feeling afraid as if something awful might happen: 1 = Several days Total MADIHA-7 score (0-4 normal; 5-9 mild; 10-14 moderate; 15-21 severe): 12 Source: Developed by Loretta Emery, Hany Harrington and colleagues, with an educational maricarmen from [employer]. MADIHA-7 Assessment Billing MADIHA-7 Assessment Tool: MADIHA-7 Assessment 06316 Review of Systems Const All systems reviewed & are unremarkable except as noted in HPI and below Card Denies chest pain at rest, Denies chest pain with activity, Denies edema, Denies irregular heart rhythm, Denies claudication, Denies dyspnea, Denies dyspnea on exertion, Denies orthopnea, Denies paroxysmal nocturnal dyspnea and Denies slow heart rate Resp Denies cough, Denies dyspnea and Denies dyspnea on exertion Musc Denies atrophy, Denies deformity and Denies limited range of motion Skin/Breast Denies bleeding lesions, Denies changing lesions and Denies rash Physical exam (Primary Care) Vital Signs: Last Vital Signs Pulse 77 01/09/25 17:06 Resp 18 01/09/25 17:06 BP 110/66 01/09/25 17:06 Pulse Ox 99 01/09/25 17:06 Oxygen Delivery Method Room Air 01/09/25 17:06 BMI result Body Mass Index 30.5 BMI Assessment/Plan discussion: High BMI High, discussed plan: lifestyle, weight reduction, dietary and physical activity Tobacco/Smoking Status: Tobacco use Status Tobacco use date assessed 01/09/25 01/09/25 17:14 Patient Tobacco Use Status Former Tobacco user 01/09/25 17:14 Tobacco use type Cigarette 01/09/25 17:14 e-Cigarette/Vaping Use Never Used 01/09/25 17:14 PHQ-9: PHQ-9 Score PHQ-9: Total score 7 01/09/25 17:26 Depression Screening Interpretation: Positive Depression Screening Follow-up: Existing condition and Follow-up Visit Requested Thrive Assessment: Date of Thrive Assessment Date Thrive assessed 01/09/25 01/09/25 17:14 Currently or been in a relationship where the following occur: No concerns repo rted HENMT Head: Yes normal to inspection, Yes normocephalic and Yes atraumatic Ears: external ears normal Eyes General: appearance normal, both eyes and all related structures Eyelids: Yes eyelids normal Conjunctivae: conjunctivae normal Neck Neck: Yes normal visual inspection and Yes supple Resp Effort & Inspection: normal respiratory effort Auscultation: clear to auscultation bilaterally Cardio Jugular venous distension: no JVD Rate: regular rate Rhythm: regular rhythm Heart sounds: S1 normal heart sound present and S2 normal heart sound present GI Inspection: Yes normal to inspection Palpation (GI): Soft to palpation and nontender Auscultation: normal bowel sounds Skin General skin exam: no rashes or lesions noted Neuro General: no focal motor deficits Extrem General: Yes full ROM Psych Appearance: grossly normal Coding Level of Care Code Est Pt Level 3 (11948) Est Pt Prev Care 18-39y(22750) Diagnoses Physical exam Z00.00 Cervical radiculopathy M54.12 Mild major depression F32.0 Multiple allergies Z88.9 Additional Codes MADIHA-7 Assessment Billing - MADIHA-7 Assessment Tool: MADIHA-7 Assessment 50113 ([id number]) PHQ-9 - 67045 - PHQ-9 Billing: Yes ([id number]) Time Spent (min) 34 Assessment & Plan Assessment & Plan (1) Physical exam: Code(s): Z00.00 - Encounter for general adult medical examination without abnormal findings Category: Medical (2) Cervical radiculopathy: Code(s): M54.12 - Radiculopathy, cervical region Category: Medical (3) Mild major depression: Code(s): F32.0 - Major depressive disorder, single episode, mild Category: Medical (4) Multiple allergies: Code(s): Z88.9 - Allergy status to unspecified drugs, medicaments and biological substances Category: Medical Plan Plan 1. Physical exam Repeat in a year. 2. Multiple Allergies The patient has a history of multiple allergies and has been unable to secure an appointment with a specialist despite three previous referrals. An insurance issue is suspected to be the cause of the difficulty. A new referral will be sent to a different dry yard worker. 3. Cervical radiculopathy Referred to ortho. Orders: Orders Comprehensive [place]. Panel Fast Today Z00.00 - Encounter for general adult medical examination without abnormal findings Lipid Panel Today E78.5 - Hyperlipidemia, unspecified, Z00.00 - Encounter for general adult medical examination without abnormal findings Referrals Allergy & Immunology Referral Z88.9 - Allergy status to unspecified drugs, medicaments and biological substances Orthopedics Referral M54.12 - Radiculopathy, cervical region
== END 2025-01-09 17:50 | disposition home or self-care (01) ==
LOC: HO.HMCH 16:46
PROVIDERS: PCP Internal Medicine; Visit Provider Internal Medicine
DX: Z00.00 Encounter for general adult medical examination without abnormal findings (principal); M54.12 Radiculopathy, cervical region; F32.0 Major depressive disorder, single episode, mild; Z88.9 Allergy status to unspecified drugs, medicaments and biological substances

== ENCOUNTER → 2025-01-09 16:45 | Outpatient (BNVA) | payer OTHER, SELFPAY | PROVIDERS: PCP Internal Medicine; Visit Provider Internal Medicine | DX: Z13.31 Encounter for screening for depression (principal); Z13.39 Encounter for screening examination for other mental health and behavioral disorders | CPT/HCPCS: 96127 ==